=== PATIENT | male | born 1950 | race Caucasian/White ===

== ENCOUNTER 2020-09-26 06:39 | Outpatient (REF) | payer MEDICARE, SELFPAY ==
[2020-09-26 11:36] LABS: Estimated Average Glucose 123 mg/dL; Hemoglobin A1c % 5.9 %
[2020-09-26 12:04] LABS: Alanine Aminotransferase 29 U/L (0-40); Albumin Level 4.1 g/dL (3.5-5.0); Alkaline Phosphatase 105 U/L (39-117); Anion Gap 12 (12-20); Aspartate Amino Transferase 23 U/L (5-37); Blood Urea Nitrogen 24 mg/dL (9-16); Calcium 9.6 mg/dL (8.4-10.2); Carbon Dioxide 28 mmol/L (22-29); Chloride 104 mmol/L (96-108); Estimated Glomerular Filt Rate > 60; Glucose Fasting 113 mg/dL (60-99); Potassium 4.3 mmol/l (3.3-5.1); Sodium 140 mmol/L (135-145); Total Protein 7.5 g/dL (6.5-8.0)
== END 2020-09-26 06:40 | disposition home or self-care (01) ==
LOC: HO.HMGCLDS 06:39
PROVIDERS: PCP Internal Medicine; Visit Provider Internal Medicine
DX: E55.9 Vitamin D deficiency, unspecified (principal); I10 Essential (primary) hypertension; I48.0 Paroxysmal atrial fibrillation; E78.2 Mixed hyperlipidemia; J45.909 Unspecified asthma, uncomplicated; R73.9 Hyperglycemia, unspecified
CPT/HCPCS: 80053; 83036

== ENCOUNTER 2021-01-12 10:13 | Outpatient (REF) | payer MEDICARE, SELFPAY ==
[2021-01-12 11:15] LABS: Glucose Urine UA NEG (NEG); Leukocyte Esterase Urine NEG (NEG); Nitrite Urine NEG (NEG); PH 6.5 (5.0-8.0); Urine Blood TRACE (NEG); Urine Ketones NEG (NEG); Urine Protein NEG (NEG-TRACE)
[2021-01-12 11:16] LABS: Appearance Urine CLEAR; Color Urine YELLOW
[2021-01-12 11:24] LABS: WBC Urine 0-2 /HPF (0-4)
== END 2021-01-12 10:14 | disposition home or self-care (01) ==
LOC: HO.HMGCLDS 10:13
PROVIDERS: PCP Internal Medicine; Visit Provider Internal Medicine
DX: N40.1 Benign prostatic hyperplasia with lower urinary tract symptoms (principal); N13.8 Other obstructive and reflux uropathy
CPT/HCPCS: 81001; 81003

== ENCOUNTER → 2021-02-06 09:58 | Outpatient (BNVA) | payer MEDICARE, SELFPAY | PROVIDERS: PCP Internal Medicine; Visit Provider Urology | DX: N52.9 Male erectile dysfunction, unspecified (principal) | CPT/HCPCS: 51798; 52332; 99202 ==

== ENCOUNTER 2021-03-30 08:23 | Outpatient (REF) | payer MEDICARE, SELFPAY ==
--- NOTE | ~2021-03-30 | US_ITS ---
EXAMINATION: US THYROID CLINICAL INFORMATION: Goiter. History of right thyroid nodule biopsy September 2018/benign. COMPARISON: Ultrasound thyroid soft tissues neck 04/14/2020 and 09/26/2019. TECHNIQUE: Linear transducer grayscale and color Doppler examination with attention to the region of the thyroid. FINDINGS: SIZE: Measurements of the thyroid lobes and nodules are given in sagittal, anteroposterior and transverse dimensions respectively. Right Thyroid Lobe: 5.45 x 2.77 x 1.76 cm, volume 13.9 mL. Previously 5.93 x 3.00 x 1.41 cm, volume 13.1 mL. Parenchyma: The gland echotexture is heterogeneous. Thyroid vascularity is normal. Left Thyroid Lobe: 4.72 x 1.72 x 1.64 cm, volume 6.97 mL. Previously 4.66 x 1.47 x 1.63 cm, volume 5.81 mL. Parenchyma: The gland echotexture is homogeneous. Thyroid vascularity is normal. Isthmus: 0.18 cm in maximum AP dimension. Previously 0.21 cm. Estimated total number of nodules greater than or equal to 1 cm: 1. Chief Medical Technologist nodules are described as follows: 1. Location: Right lower pole. Size: 3.08 x 2.30 x 2.12 cm, volume 7.9 mL. Previously: 3.24 x 2.35 x 1.83 cm, volume 7.3 mL. Nodule characteristics: Composition: Solid/almost completely solid (2). Echogenicity: Hypoechoic (2). Shape: Not taller than wide (0). Margins: Smooth (0). Echogenic Foci: Punctate echogenic foci (3). ACR TI-RADS total points: 7 ACR TI-RADS category: 5 Significant change in size (>/= 20% in 2 dimensions and minimal increase of 2 mm or 50% or greater increase in volume): No Change in features: No Change in ACR TI-RADS risk category: No 2. Location: Right midpole. Size: 0.39 x 0.24 x 0.36 cm, volume 0.02 mL. Previously: 0.40 x 0.20 x 0.30 cm, volume 0.01 mL. Nodule characteristics: Composition: Cystic(0). ACR TI-RADS total points: 0 ACR TI-RADS category: 1 Significant change in size (>/= 20% in 2 dimensions and minimal increase of 2 mm or 50% or greater increase in volume): No Change in features: No Change in ACR TI-RADS risk category: No NODES: No lymphadenopathy is seen in the tissue surrounding the thyroid gland. US/US thyroid IMPRESSION: Enlarged heterogeneous right lobe. Stable right thyroid nodules. ACR TI-RADS RECOMMENDATION REFERENCE: Ultrasound-guided fine-needle aspiration, followup ultrasound, no further follow up. * TR1 (0 point) and TR 2 (2 points): No FNA or follow up * TR3 (3 points): FNA if more than or equal to 2.5 cm in maximum dimension, followup ultrasound in 1, 3 and 5 years if 1.5 to 2.4 cm in maximum dimension. * TR4 (4-6 points): FNA if more than or equal to 1.5 cm in maximum dimension, followup ultrasound in 1, 2, 3 and 5 years if 1 to 1.4 cm in maximum dimension. * TR5 (more than or equal to 7 points): FNA if more than or equal to 1 cm in maximum dimension, followup ultrasound every year for 5 years if 0.5 to 0.9 cm in maximum dimension. * TR3, TR4 or TR5 nodules that are below the size threshold for follow up receive no follow up.
[2021-03-30 11:31] LABS: Hematocrit 41.3 % (42-52); Hemoglobin 13.4 g/dl (14.0-18.0); Mean Corpuscular HGB Conc 32.4 g/dl (31.0-36.0); Mean Corpuscular Hemoglobin 28.9 pg (27.0-33.0); Mean Platelet Volume 10.3 fL (9.4-12.4); Platelet Count 268 X10*3/uL (160-400); Red Blood Count 4.64 X10*6/uL (4.60-5.80); Red Cell Distribution Width 13.4 % (11.0-16.0); White Blood Count 7.2 X10*3/uL (4.8-10.8)
[2021-03-30 11:47] LABS: Glucose Urine UA NEG (NEG); Leukocyte Esterase Urine NEG (NEG); Nitrite Urine NEG (NEG); Specific Gravity - Urine >= 1.030 (1.005-1.025); Urine Blood 1+ (NEG); Urine Ketones NEG (NEG); Urine Protein NEG (NEG-TRACE)
[2021-03-30 11:53] LABS: Alanine Aminotransferase 23 U/L (0-40); Albumin Level 3.8 g/dL (3.5-5.0); Alkaline Phosphatase 118 U/L (39-117); Anion Gap 10 (12-20); Aspartate Amino Transferase 19 U/L (5-37); Bilirubin Total 0.6 mg/dL (0.0-1.0); Blood Urea Nitrogen 23 mg/dL (9-16); Calcium 9.9 mg/dL (8.4-10.2); Carbon Dioxide 28 mmol/L (22-29); Chloride 106 mmol/L (96-108); Cholesterol 131 mg/dL; Estimated Glomerular Filt Rate > 60; Glucose Fasting 102 mg/dL (60-99); HDL Cholesterol 38 mg/dL; LDL Cholesterol Calculated 82 mg/dl; Potassium 4.1 mmol/L (3.3-5.1); Sodium 140 mmol/L (135-145); Total Protein 7.1 g/dL (6.5-8.0); Triglycerides 56 mg/dL
[2021-03-30 11:55] LABS: Appearance Urine CLOUDY; Color Urine YELLOW
[2021-03-30 12:06] LABS: Free T4 (Free Thyroxine) 0.95 ng/dL (0.71-1.85); Thyroid Stimulating Hormone 0.85 uIU/mL (0.32-4.0)
[2021-03-30 12:18] LABS: Prostate Specific Antigen Scr 1.13 ng/mL (<0.05-4.0); TSH reflex Free T4 0.95 uIU/mL (0.32-4.0)
[2021-03-30 12:34] LABS: Estimated Average Glucose 128 mg/dL; Hemoglobin A1c % 6.1 %
[2021-03-30 12:42] LABS: Folate 13.7 ng/mL (> or = 4.0); Vitamin B12 726 pg/mL (200-900)
[2021-03-30 12:50] LABS: Amorphous Sediment Urine 4+ /LPF; RBC Urine 0 /HPF (0); WBC Urine 0 /HPF (0-4)
== END 2021-03-30 08:24 | disposition home or self-care (01) ==
LOC: HO.HMGCX 08:23
PROVIDERS: PCP Internal Medicine; Visit Provider Internal Medicine Endocrinology, Diabetes & Metabolism
DX: E04.2 Nontoxic multinodular goiter (principal); R73.9 Hyperglycemia, unspecified; I10 Essential (primary) hypertension; E78.5 Hyperlipidemia, unspecified; I48.0 Paroxysmal atrial fibrillation; E53.8 Deficiency of other specified B group vitamins; N40.0 Benign prostatic hyperplasia without lower urinary tract symptoms; Z12.5 Encounter for screening for malignant neoplasm of prostate
CPT/HCPCS: 36415; 76536; 80053; 80061; 81001; 82043; 82607; 82746; 83036; 84153; 84439; 84443; 85027

== ENCOUNTER → 2021-04-15 09:48 | Outpatient (BNVA) | payer MEDICARE, SELFPAY | PROVIDERS: PCP Internal Medicine; Visit Provider Internal Medicine Endocrinology, Diabetes & Metabolism | DX: E04.2 Nontoxic multinodular goiter (principal) | CPT/HCPCS: 99212 ==

== ENCOUNTER → 2021-05-12 10:10 | Outpatient (BNVA) | payer MEDICARE, SELFPAY | PROVIDERS: Visit Provider Urology | DX: N40.1 Benign prostatic hyperplasia with lower urinary tract symptoms (principal); N13.8 Other obstructive and reflux uropathy; N52.9 Male erectile dysfunction, unspecified | CPT/HCPCS: 99212 ==

== ENCOUNTER 2021-08-17 07:51 | Outpatient (REF) | payer MEDICARE, SELFPAY ==
[2021-08-17 11:42] LABS: Hematocrit 41.3 % (42-52); Hemoglobin 13.6 g/dl (14.0-18.0); Mean Corpuscular HGB Conc 32.9 g/dl (31.0-36.0); Mean Corpuscular Hemoglobin 29.3 pg (27.0-33.0); Mean Platelet Volume 10.3 fL (9.4-12.4); Platelet Count 273 X10*3/uL (160-400); Red Blood Count 4.64 X10*6/uL (4.60-5.80); Red Cell Distribution Width 13.5 % (11.0-16.0); White Blood Count 9.6 X10*3/uL (4.8-10.8)
[2021-08-17 12:35] LABS: Alanine Aminotransferase 25 U/L (0-40); Albumin Level 3.7 g/dL (3.5-5.0); Alkaline Phosphatase 114 U/L (39-117); Anion Gap 13 (12-20); Aspartate Amino Transferase 19 U/L (5-37); Bilirubin Total 0.6 mg/dL (0.0-1.0); Blood Urea Nitrogen 18 mg/dL (9-16); Calcium 9.5 mg/dL (8.4-10.2); Carbon Dioxide 25 mmol/L (22-29); Chloride 107 mmol/L (96-108); Estimated Glomerular Filt Rate > 60; Glucose Fasting 103 mg/dL (60-99); Iron 65 mcg/dL (45-160); Percent Iron Saturation 26 % (15-50); Sodium 141 mmol/L (135-145); Total Iron Binding Capacity 252 mcg/dL (228-428); Total Protein 6.6 g/dL (6.5-8.0); Unsaturated Iron Binding 187 ug/dL
[2021-08-17 13:03] LABS: Estimated Average Glucose 117 mg/dL; Hemoglobin A1c % 5.7 %
== END 2021-08-17 07:52 | disposition home or self-care (01) ==
LOC: HO.HMGCLDS 07:51
PROVIDERS: PCP Internal Medicine; Visit Provider Internal Medicine
DX: E78.5 Hyperlipidemia, unspecified (principal); I10 Essential (primary) hypertension; R73.9 Hyperglycemia, unspecified
CPT/HCPCS: 36415; 80053; 83036; 83540; 85027

== ENCOUNTER → 2021-11-10 08:47 | Outpatient (BNVA) | payer MEDICARE, SELFPAY | PROVIDERS: PCP Internal Medicine; Visit Provider Urology | DX: N40.1 Benign prostatic hyperplasia with lower urinary tract symptoms (principal); N13.8 Other obstructive and reflux uropathy; N52.9 Male erectile dysfunction, unspecified; N48.6 Induration penis plastica | CPT/HCPCS: 51798; 99212 ==

== ENCOUNTER 2021-12-02 09:19 | Outpatient (REF) | payer MEDICARE, SELFPAY ==
[2021-12-02 12:03] LABS: Uric Acid 5.6 mg/dL (3.4-7.0)
[2021-12-02 12:20] LABS: Erythrocyte Sedimentation Rate 40 MM/HR (0-15)
== END 2021-12-02 09:20 | disposition home or self-care (01) ==
LOC: HO.HMGCLDS 09:19
PROVIDERS: PCP Internal Medicine; Visit Provider Podiatrist
DX: M10.9 Gout, unspecified (principal)
CPT/HCPCS: 36415; 84550; 85652

== ENCOUNTER 2022-03-01 08:11 | Outpatient (REF) | payer MEDICARE, SELFPAY ==
[2022-03-01 12:42] LABS: Alanine Aminotransferase 21 U/L (0-40); Albumin Level 3.8 g/dL (3.5-5.0); Alkaline Phosphatase 104 U/L (39-117); Anion Gap 12 (12-20); Aspartate Amino Transferase 16 U/L (5-37); Bilirubin Total 0.7 mg/dL (0.0-1.0); Blood Urea Nitrogen 19 mg/dL (9-16); Calcium 9.9 mg/dL (8.4-10.2); Carbon Dioxide 26 mmol/L (22-29); Chloride 106 mmol/L (96-108); Cholesterol 131 mg/dL; Estimated Glomerular Filt Rate > 60; Glucose Fasting 107 mg/dL (60-99); HDL Cholesterol 34 mg/dL; LDL Cholesterol Calculated 80 mg/dl; Potassium 3.8 mmol/L (3.3-5.1); Sodium 140 mmol/L (135-145); Total Protein 7.1 g/dL (6.5-8.0); Triglycerides 88 mg/dL
[2022-03-01 12:56] LABS: Estimated Average Glucose 123 mg/dL; Hemoglobin A1c % 5.9 %
== END 2022-03-01 08:12 | disposition home or self-care (01) ==
LOC: HO.HMGCLDS 08:11
PROVIDERS: PCP Internal Medicine; Visit Provider Internal Medicine
DX: E78.5 Hyperlipidemia, unspecified (principal); I10 Essential (primary) hypertension; R73.9 Hyperglycemia, unspecified
CPT/HCPCS: 36415; 80053; 80061; 83036

== ENCOUNTER → 2022-04-06 14:32 | Outpatient (BNVA) | payer MEDICARE, SELFPAY | PROVIDERS: PCP Internal Medicine; Visit Provider Internal Medicine Endocrinology, Diabetes & Metabolism | DX: E04.2 Nontoxic multinodular goiter (principal) | CPT/HCPCS: 99212 ==

== ENCOUNTER 2022-04-07 07:28 | Outpatient (REF) | payer MEDICARE, SELFPAY ==
[2022-04-07 11:48] LABS: Hematocrit 41.1 % (42.0-52.0); Hemoglobin 13.1 g/dl (14.0-18.0); Mean Corpuscular HGB Conc 31.9 g/dl (31.0-36.0); Mean Corpuscular Hemoglobin 28.4 pg (27.0-33.0); Mean Platelet Volume 10.3 fL (9.4-12.4); Platelet Count 259 X10*3/uL (160-400); Red Blood Count 4.62 X10*6/uL (4.60-5.80); Red Cell Distribution Width 13.2 % (11.0-16.0); White Blood Count 8.3 X10*3/uL (4.8-10.8)
[2022-04-07 12:01] LABS: Estimated Average Glucose 120 mg/dL; Hemoglobin A1c % 5.8 %
[2022-04-07 12:13] LABS: Alanine Aminotransferase 23 U/L (0-40); Albumin Level 3.7 g/dL (3.5-5.0); Alkaline Phosphatase 107 U/L (39-117); Anion Gap 14 (12-20); Aspartate Amino Transferase 20 U/L (5-37); Bilirubin Total 0.5 mg/dL (0.0-1.0); Blood Urea Nitrogen 20 mg/dL (9-16); Calcium 9.8 mg/dL (8.4-10.2); Carbon Dioxide 26 mmol/L (22-29); Chloride 105 mmol/L (96-108); Cholesterol 130 mg/dL; Estimated Glomerular Filt Rate > 60; Glucose Fasting 105 mg/dL (60-99); HDL Cholesterol 38 mg/dL; LDL Cholesterol Calculated 81 mg/dl; Potassium 4.5 mmol/L (3.3-5.1); Sodium 140 mmol/L (135-145); Total Protein 6.5 g/dL (6.5-8.0); Triglycerides 55 mg/dL
[2022-04-07 12:14] LABS: Thyroid Stimulating Hormone 1.33 uIU/mL (0.32-4.0)
[2022-04-07 12:15] LABS: Creatinine Urine 130.59 mg/dL; Microalbum/Creatinine Ratio Ur 8.4 ug/mg cr
[2022-04-07 12:22] LABS: Free T4 (Free Thyroxine) 0.99 ng/dL (0.71-1.85)
== END 2022-04-07 07:29 | disposition home or self-care (01) ==
LOC: HO.HMGCLDS 07:28
PROVIDERS: PCP Internal Medicine; Visit Provider Internal Medicine Endocrinology, Diabetes & Metabolism
DX: E04.2 Nontoxic multinodular goiter (principal); I10 Essential (primary) hypertension; R73.9 Hyperglycemia, unspecified; E78.5 Hyperlipidemia, unspecified
CPT/HCPCS: 36415; 80053; 80061; 82043; 83036; 84439; 84443; 85027

== ENCOUNTER → 2022-05-19 08:34 | Outpatient (BNVA) | payer MEDICARE, SELFPAY | PROVIDERS: PCP Internal Medicine; Visit Provider Urology | DX: N40.1 Benign prostatic hyperplasia with lower urinary tract symptoms (principal); N13.8 Other obstructive and reflux uropathy; N48.6 Induration penis plastica; N52.9 Male erectile dysfunction, unspecified | CPT/HCPCS: 51798; 99212 ==

== ENCOUNTER 2022-08-19 08:23 | Outpatient (REF) | payer MEDICARE, SELFPAY ==
[2022-08-19 11:15] LABS: MANUAL DIFF FLAG NO
[2022-08-19 11:25] LABS: Basophils Absolute Auto 0.1 X10*3/uL (0.0-0.2); Basophils Percent Auto 0.8 % (0-2); Eosinophils Absolute Auto 0.5 X10*3/uL (0.0-0.4); Eosinophils Percent Auto 5.6 % (0-4); Hemoglobin 13.4 g/dl (14.0-18.0); Imm Gran Abs Auto 0.04 X10*3/uL (0.00-0.03); Imm Gran Pct Auto 0.4 % (0.0-0.4); Lymphocytes Absolute Auto 2.3 X10*3/uL (1.2-4.9); Lymphocytes Percent Auto 25.6 % (20-40); Mean Corpuscular HGB Conc 32.7 g/dl (31.0-36.0); Mean Corpuscular Hemoglobin 28.5 pg (27.0-33.0); Mean Platelet Volume 10.3 fL (9.4-12.4); Monocytes Absolute Auto 0.8 X10*3/uL (0.1-1.2); Monocytes Percent Auto 9.3 % (2-11); Neutrophils Absolute Auto 5.2 x10*3/uL (2.0-8.3); Neutrophils Percent Auto 58.3 % (45-73); Platelet Count 266 X10*3/uL (160-400); Red Blood Count 4.71 X10*6/uL (4.60-5.80); Red Cell Distribution Width 13.9 % (11.0-16.0); White Blood Count 8.9 X10*3/uL (4.8-10.8)
[2022-08-19 11:29] LABS: Estimated Average Glucose 123 mg/dL; Hemoglobin A1c % 5.9 %
[2022-08-19 11:57] LABS: Alanine Aminotransferase 19 U/L (0-40); Alkaline Phosphatase 111 U/L (39-117); Anion Gap 14 (12-20); Aspartate Amino Transferase 18 U/L (5-37); Bilirubin Total 0.8 mg/dL (0.0-1.0); Blood Urea Nitrogen 22 mg/dL (9-16); Calcium 9.7 mg/dL (8.4-10.2); Carbon Dioxide 24 mmol/L (22-29); Chloride 105 mmol/L (96-108); Cholesterol 133 mg/dL; Estimated Glomerular Filt Rate > 60; Glucose Fasting 103 mg/dL (60-99); HDL Cholesterol 37 mg/dL; LDL Cholesterol Calculated 84 mg/dl; Potassium 4.1 mmol/L (3.3-5.1); Sodium 139 mmol/L (135-145); Total Protein 7.2 g/dL (6.5-8.0); Triglycerides 61 mg/dL; Vitamin D 25-OH Total 49.3 ng/mL (>30)
[2022-08-19 12:21] LABS: Creatinine Urine 164.85 mg/dL; Microalbum/Creatinine Ratio Ur 7.8 ug/mg cr
== END 2022-08-19 08:24 | disposition home or self-care (01) ==
LOC: HO.HMGCLDS 08:23
PROVIDERS: PCP Internal Medicine; Visit Provider Internal Medicine
DX: E78.5 Hyperlipidemia, unspecified (principal); I10 Essential (primary) hypertension; I48.0 Paroxysmal atrial fibrillation; R73.9 Hyperglycemia, unspecified; E55.9 Vitamin D deficiency, unspecified
CPT/HCPCS: 36415; 80053; 80061; 82043; 82306; 83036; 85025

== ENCOUNTER 2022-11-15 08:38 | Outpatient (REF) | payer MEDICARE, SELFPAY ==
[2022-11-15 13:06] LABS: Prostate Specific Antigen 0.53 ng/mL (<0.05-4.0)
== END 2022-11-15 08:39 | disposition home or self-care (01) ==
LOC: HO.HMGCLDS 08:38
PROVIDERS: PCP Internal Medicine; Visit Provider Urology
DX: Z12.5 Encounter for screening for malignant neoplasm of prostate (principal); N40.1 Benign prostatic hyperplasia with lower urinary tract symptoms; N13.8 Other obstructive and reflux uropathy
CPT/HCPCS: 36415; 84153

== ENCOUNTER 2022-11-23 08:26 | Outpatient (REF) | payer MEDICARE, SELFPAY ==
[2022-11-23 17:51] LABS: Urine Cytology See Pathology rpt
== END 2022-11-23 08:27 | disposition home or self-care (01) ==
LOC: HO.LAB 08:26
PROVIDERS: PCP Internal Medicine; Visit Provider Urology
DX: R31.29 Other microscopic hematuria (principal); N48.6 Induration penis plastica; N52.9 Male erectile dysfunction, unspecified; N40.1 Benign prostatic hyperplasia with lower urinary tract symptoms; N13.8 Other obstructive and reflux uropathy
CPT/HCPCS: 51798; 88112; 99212

== ENCOUNTER 2023-02-18 08:07 | Outpatient (REF) | payer MEDICARE, SELFPAY ==
[2023-02-18 11:17] LABS: MANUAL DIFF FLAG NO
[2023-02-18 11:23] LABS: Basophils Absolute Auto 0.1 X10*3/uL (0.0-0.2); Basophils Percent Auto 0.8 % (0-2); Eosinophils Absolute Auto 0.6 X10*3/uL (0.0-0.4); Eosinophils Percent Auto 6.7 % (0-4); Hematocrit 40.5 % (42.0-52.0); Imm Gran Abs Auto 0.03 X10*3/uL (0.00-0.03); Imm Gran Pct Auto 0.3 % (0.0-0.4); Lymphocytes Absolute Auto 2.6 X10*3/uL (1.2-4.9); Lymphocytes Percent Auto 26.6 % (20-40); Mean Corpuscular HGB Conc 32.1 g/dl (31.0-36.0); Mean Corpuscular Volume 87.1 fL (80.0-98.0); Mean Platelet Volume 10.3 fL (9.4-12.4); Monocytes Percent Auto 9.9 % (2-11); Neutrophils Absolute Auto 5.4 x10*3/uL (2.0-8.3); Neutrophils Percent Auto 55.7 % (45-73); Platelet Count 253 X10*3/uL (160-400); Red Blood Count 4.65 X10*6/uL (4.60-5.80); Red Cell Distribution Width 13.5 % (11.0-16.0); White Blood Count 9.6 X10*3/uL (4.8-10.8)
[2023-02-18 11:39] LABS: Estimated Average Glucose 126 mg/dL
[2023-02-18 11:54] LABS: Alanine Aminotransferase 23 U/L (0-40); Albumin Level 3.6 g/dL (3.5-5.0); Alkaline Phosphatase 114 U/L (39-117); Anion Gap 12 (12-20); Aspartate Amino Transferase 18 U/L (5-37); Bilirubin Total 0.7 mg/dL (0.0-1.0); Blood Urea Nitrogen 20 mg/dL (9-16); Calcium 9.4 mg/dL (8.4-10.2); Carbon Dioxide 26 mmol/L (22-29); Chloride 106 mmol/L (96-108); Estimated Glomerular Filt Rate > 60; Glucose Fasting 128 mg/dL (60-99); Potassium 4.2 mmol/L (3.3-5.1); Sodium 140 mmol/L (135-145); Total Protein 6.8 g/dL (6.5-8.0)
[2023-02-18 12:13] LABS: TSH reflex Free T4 0.98 uIU/mL (0.32-4.0)
== END 2023-02-18 08:08 | disposition home or self-care (01) ==
LOC: HO.HMGCLDS 08:07
PROVIDERS: PCP Internal Medicine; Visit Provider Internal Medicine
DX: E53.8 Deficiency of other specified B group vitamins (principal); E55.9 Vitamin D deficiency, unspecified; I10 Essential (primary) hypertension; I48.0 Paroxysmal atrial fibrillation; E78.5 Hyperlipidemia, unspecified
CPT/HCPCS: 36415; 80053; 83036; 84443; 85025

== ENCOUNTER 2023-02-19 11:21 | Outpatient (REF) | payer MEDICARE, SELFPAY ==
[2023-02-19 12:06] LABS: Influenza A PCR NEGATIVE (Negative); Influenza B PCR NEGATIVE (Negative); Resp Syncy Virus RNA Qual PCR NEGATIVE (Negative); SARS COV2 PCR INHOUSE NEGATIVE (Negative)
== END 2023-02-19 11:22 | disposition home or self-care (01) ==
LOC: HO.HMGCLNP 11:21
PROVIDERS: Visit Provider Physician Assistant Medical
DX: Z20.822 Contact with and (suspected) exposure to COVID-19 (principal); R05.9 Cough, unspecified
CPT/HCPCS: 0241U

== ENCOUNTER 2023-04-04 08:32 | Outpatient (REF) | payer MEDICARE, SELFPAY ==
[2023-04-04 12:44] LABS: Alanine Aminotransferase 23 U/L (0-40); Aspartate Amino Transferase 18 U/L (5-37); Cholesterol 128 mg/dL; HDL Cholesterol 38 mg/dL; LDL Cholesterol Calculated 80 mg/dl; Triglycerides 53 mg/dL
== END 2023-04-04 08:33 | disposition home or self-care (01) ==
LOC: HO.HMGCLDS 08:32
PROVIDERS: PCP Internal Medicine; Visit Provider Internal Medicine Cardiovascular Disease
DX: E78.2 Mixed hyperlipidemia (principal)
CPT/HCPCS: 36415; 80061; 84450; 84460

== ENCOUNTER 2023-07-31 13:04 | Emergency (ER) | payer MEDICARE, SELFPAY ==
--- NOTE | 2023-07-31 | ECG_ITS ---
Test Reason : vomiting Blood Pressure : / mmHG Vent. Rate : 050 BPM Atrial Rate : 000 BPM P-R Int : 000 ms QRS Dur : 082 ms QT Int : 422 ms P-R-T Axes : 000 -42 018 degrees QTc Int : 384 ms Atrial fibrillation with slow ventricular response Left axis deviation Inferior infarct , age undetermined Abnormal ECG No previous ECGs available Referred By: Generic ED Physician Electronically Signed By:DESIRAE SHIELDS
--- NOTE | 2023-07-31 13:16 | ED.ABDPAIN ---
HPI - Abdominal Pain General Stated Complaint: Vomiting Related Data Home Medications Medication Instructions Recorded Confirmed atorvastatin 40 mg tablet 40 mg PO DAILY 10/02/20 03/03/23 flu vacc 2020-(65yr ml IM 10/02/20 03/03/23 up)-MF59C(PF) 60 mcg(15 mcgx4)/0.5 mL IM syringe glucosamine HCl 500 mg tablet 500 mg PO DAILY 10/02/20 03/03/23 cholecalciferol (vitamin D3) 50 50 mcg PO DAILY 04/15/21 03/03/23 mcg (2,000 unit) chewable tablet apixaban 5 mg tablet (Eliquis) 5 mg PO BID 11/10/21 03/03/23 diltiazem HCl 180 mg 180 mg PO DAILY 11/10/21 03/03/23 capsule,extended release 24 hr, controlled Previous Rx's Medication Instructions Recorded meclizine 25 mg tablet 25 mg PO TID PRN dizziness #20 tabs 10/09/20 fluticasone 250 mcg-salmeterol 50 1 inh inhalation BID #180 ea 08/27/21 mcg/dose blistr powdr for inhalation (Advair Diskus) vitamin E (dl, acetate) 450 mg 450 mg PO DAILY 90 days #90 caps 11/11/21 (1,000 unit) capsule lisinopril 20 mg tablet 20 mg PO DAILY #90 tabs 10/18/22 sertraline 100 mg tablet 100 mg PO DAILY #90 tabs 10/18/22 albuterol sulfate 90 mcg/actuation 2 puff inhalation Q6H #8.5 grams 11/19/22 aerosol inhaler tadalafil 10 mg tablet 10 mg PO DAILY PRN sexual activity 11/23/22 90 days #90 tabs hydrochlorothiazide 12.5 mg tablet 12.5 mg PO QAM #90 tabs 01/05/23 benzonatate 100 mg capsule 100 mg PO BID-TID PRN cough #30 02/19/23 caps donepezil 10 mg tablet 10 mg PO DAILY #90 tabs 03/03/23 Allergies Allergy/AdvReac Type Severity Reaction Status Date / Time No Known Allergies Allergy Verified 03/03/23 14:21 [facility] Past Medical History Medical History Annual physical exam BPH w urinary obs/LUTS Chronic asthma Chronic depression GERD (gastroesophageal reflux disease) HTN (hypertension) Hyperglycemia Hyperlipidemia Non-toxic multinodular goiter EVITA on CPAP Paroxysmal atrial fibrillation Thyroid nodule Vitamin B12 deficiency Surgical History H/O colonoscopy No pertinent past surgical history Family History Family History Father CHF (congestive heart failure) Diabetes mellitus Mother Cancer Daughter No problems noted. Social History Social History Housing: House Alcohol intake: current Alcohol intake frequency: a few times a week Patient Tobacco Use Status: Never used Tobacco e-Cigarette/Vaping Use: Never Used Second Hand Smoke Exposure: No service: Yes Current occupational status: retired Current occupational exposures/hazards: No Cognitive needs: No Hearing needs: No Vision needs: Yes Course Course Course Narrative: This is a rapid medical exam. Deferred additional HPI, ROS, PE to primary provider. 72 yo male with history of HTN, HLD, COPD, afib on eliquis Discharge Plan Discharge Prescriptions: No Action fluticasone propion-salmeterol [Advair Diskus] 250-50 mcg/dose blister with device 1 inh inhalation BID Qty: 180 3RF sertraline 100 mg tablet 100 mg PO DAILY Qty: 90 3RF lisinopril 20 mg tablet 20 mg PO DAILY Qty: 90 3RF albuterol sulfate 90 mcg/actuation HFA aerosol inhaler 2 puff inhalation Q6H Qty: 8.5 3RF hydrochlorothiazide 12.5 mg tablet 12.5 mg PO QAM Qty: 90 3RF atorvastatin 40 mg tablet 40 mg PO DAILY Fluad Quad 2020-21(65y up)(PF) 60 mcg (15 mcg x 4)/0.5 mL syringe IM glucosamine HCl 500 mg tablet 500 mg PO DAILY Rx Instructions: administer with meals meclizine 25 mg tablet 25 mg PO TID PRN (Reason: dizziness) Qty: 20 0RF benzonatate 100 mg capsule 100 mg PO BID-TID PRN (Reason: cough) Qty: 30 0RF donepezil 10 mg tablet 10 mg PO DAILY Qty: 90 2RF diltiazem HCl 180 mg capsule,ext.rel 24h degradable 180 mg PO DAILY Eliquis 5 mg tablet 5 mg PO BID vitamin E (dl, acetate) 450 mg (1,000 unit) capsule 450 mg PO DAILY 90 Days Qty: 90 1RF cholecalciferol (vitamin D3) 50 mcg (2,000 unit) tablet,chewable 50 mcg PO DAILY tadalafil 10 mg tablet 10 mg PO DAILY PRN (Reason: sexual activity) 90 Days Qty: 90 3RF
[2023-07-31 13:24] VITALS: BP 160/83; PULSE 64; RESP 18; TEMP 36.6; O2SAT 98; BMI 27.8
[2023-07-31 15:45] LABS: MANUAL DIFF FLAG NO
[2023-07-31 15:46] LABS: Basophils Absolute Auto 0.1 X10*3/uL (0.0-0.2); Basophils Percent Auto 0.9 % (0-2); Eosinophils Absolute Auto 0.3 X10*3/uL (0.0-0.4); Eosinophils Percent Auto 3.9 % (0-4); Hematocrit 40.7 % (42.0-52.0); Hemoglobin 13.5 g/dl (14.0-18.0); Imm Gran Abs Auto 0.01 X10*3/uL (0.00-0.03); Imm Gran Pct Auto 0.1 % (0.0-0.4); Lymphocytes Absolute Auto 1.7 X10*3/uL (1.2-4.9); Lymphocytes Percent Auto 22.9 % (20-40); Mean Corpuscular HGB Conc 33.2 g/dl (31.0-36.0); Mean Corpuscular Hemoglobin 28.5 pg (27.0-33.0); Mean Platelet Volume 9.6 fL (9.4-12.4); Monocytes Absolute Auto 0.6 X10*3/uL (0.1-1.2); Monocytes Percent Auto 7.4 % (2-11); Neutrophils Absolute Auto 4.8 x10*3/uL (2.0-8.3); Neutrophils Percent Auto 64.8 % (45-73); Platelet Count 266 X10*3/uL (160-400); Red Blood Count 4.73 X10*6/uL (4.60-5.80); Red Cell Distribution Width 13.2 % (11.0-16.0); White Blood Count 7.4 X10*3/uL (4.8-10.8)
[2023-07-31 15:58] VITALS: BP 142/79; PULSE 56; RESP 18; O2SAT 97
[2023-07-31 16:02] LABS: Alanine Aminotransferase 19 U/L (0-40); Albumin Level 3.9 g/dL (3.5-5.0); Alkaline Phosphatase 107 U/L (39-117); Anion Gap 12 (12-20); Aspartate Amino Transferase 16 U/L (5-37); Bilirubin Total 0.4 mg/dL (0.0-1.0); Blood Urea Nitrogen 11 mg/dL (9-16); Calcium 10.9 mg/dL (8.4-10.2); Carbon Dioxide 28 mmol/L (22-29); Chloride 106 mmol/L (96-108); Creatinine Clr Calc Pharmacy 92.3; Estimated Glomerular Filt Rate > 60; Glucose Random 100 mg/dL (60-115); Potassium 4.3 mmol/L (3.3-5.1); Sodium 142 mmol/L (135-145); Total Protein 7.5 g/dL (6.5-8.0)
--- NOTE | 2023-07-31 16:06 | PC.NURSE ---
pt reported that he got up to use the bathroom and got dizzy and nauseous. did not vomit, symptoms resolved. pt resting back in bed at this time.
--- NOTE | 2023-07-31 16:36 | ED.GENADULT ---
HPI - General Adult General Chief complaint: Nausea/Vomiting/Diarrhea Stated complaint: Vomiting Time Seen by Provider: 07/31/23 15:59 Source: patient Mode of arrival: ambulatory Limitations: no limitations History of Present Illness HPI narrative: Patient is a 72 year old male who presents to the ED due to nausea and vomiting. He reports that his symptoms started yesterday and has experienced episodes of dry heaving. Patient denies seeing any blood in his vomit. He also experiences associated chills and headaches. He reports an increase in bowel movements and noticed that he's been more gassy as of recently. He explains that he's experienced similar symptoms a couple of weeks ago, which lasted about 24 hours and resolved on its own. He has taken tylenol for his headache but denies taking any medication for his GI upset. Patient has a PMH of GERD and denies any abdominal surgeries. Patient and reports the patient has been following with GI, Dr. Norton for 3-4 months of GI upset with diarrhea Related Data Home Medications Medication Instructions Recorded Confirmed atorvastatin 40 mg tablet 40 mg PO DAILY 10/02/20 03/03/23 flu vacc (65yr ml IM 10/02/20 03/03/23 up)-MF59C(PF) 60 mcg(15 mcgx4)/0.5 mL IM syringe glucosamine HCl 500 mg tablet 500 mg PO DAILY 10/02/20 03/03/23 cholecalciferol (vitamin D3) 50 50 mcg PO DAILY 04/15/21 03/03/23 mcg (2,000 unit) chewable tablet apixaban 5 mg tablet (Eliquis) 5 mg PO BID 11/10/21 03/03/23 diltiazem HCl 180 mg 180 mg PO DAILY 11/10/21 03/03/23 capsule,extended release 24 hr, controlled Previous Rx's Medication Instructions Recorded meclizine 25 mg tablet 25 mg PO TID PRN dizziness #20 tabs 10/09/20 fluticasone 250 mcg-salmeterol 50 1 inh inhalation BID #180 ea 08/27/21 mcg/dose blistr powdr for inhalation (Advair Diskus) vitamin E (dl, acetate) 450 mg 450 mg PO DAILY 90 days #90 caps 11/11/21 (1,000 unit) capsule lisinopril 20 mg tablet 20 mg PO DAILY #90 tabs 10/18/22 sertraline 100 mg tablet 100 mg PO DAILY #90 tabs 10/18/22 albuterol sulfate 90 mcg/actuation 2 puff inhalation Q6H #8.5 grams 11/19/22 aerosol inhaler tadalafil 10 mg tablet 10 mg PO DAILY PRN sexual activity 11/23/22 90 days #90 tabs hydrochlorothiazide 12.5 mg tablet 12.5 mg PO QAM #90 tabs 01/05/23 benzonatate 100 mg capsule 100 mg PO BID-TID PRN cough #30 02/19/23 caps donepezil 10 mg tablet 10 mg PO DAILY #90 tabs 03/03/23 ondansetron 4 mg disintegrating 4 mg PO Q8H PRN nausea and 07/31/23 tablet vomiting #20 tabs Allergies Allergy/AdvReac Type Severity Reaction Status Date / Time No Known Allergies Allergy Verified 03/03/23 14:21 Review of Systems Constitutional: Constitutional: Reports chills and Reports headache(s) ENT: Reports headache(s) Cardiovascular: Cardiovascular: Denies chest pain, Reports lightheadedness and Denies dyspnea Respiratory: Respiratory: Denies dyspnea Gastrointestinal: Gastrointestinal: Denies abdominal pain, Reports nausea and Reports vomiting Musculoskeletal: Musculoskeletal: Denies back pain Neurologic: Reports headache(s) [facility] Past Medical History Medical History Annual physical exam BPH w urinary obs/LUTS Chronic asthma Chronic depression GERD (gastroesophageal reflux disease) HTN (hypertension) Hyperglycemia Hyperlipidemia Non-toxic multinodular goiter EVITA on CPAP Paroxysmal atrial fibrillation Thyroid nodule Vitamin B12 deficiency Surgical History H/O colonoscopy No pertinent past surgical history Family History Family History Father CHF (congestive heart failure) Diabetes mellitus Mother Cancer Daughter No problems noted. Social History Social History Housing: House Alcohol intake: never Patient Tobacco Use Status: Never used Tobacco Smoked in Last 30 Days: No e-Cigarette/Vaping Use: Never Used Second Hand Smoke Exposure: No Use of substances other than those prescribed or required for medical reasons: No Advance Directives: Yes Advance Directives Information Provided: No Advance Directives on File: No service: Yes Current occupational status: retired Current occupational exposures/hazards: No Cognitive needs: No Hearing needs: No Vision needs: Yes Physical Exam ED Vital Signs: Vital Signs - 24 hr 07/31/23 13:24 07/31/23 15:58 Temperature 97.8 F Pulse Rate 64 56 Respiratory Rate 18 18 Blood Pressure 160/83 H 142/79 H Pulse Oximetry 98 97 Oxygen Delivery Method Room Air Room Air BMI result Body Mass Index 27.8 Const General: healthy appearing, comfortable, no acute distress, alert and awake Nutritional Appearance: well nourished Orientation/consciousness: patient oriented x3 HENMT Head: Yes normocephalic and Yes atraumatic Eyes Eyelids: Yes eyelids normal Conjunctivae: conjunctivae normal Sclerae: sclerae normal Corneas: corneas normal Pupils: Equal, round and reactive pupils present EOM: EOMs intact bilaterally Neck Neck: Yes full ROM Resp Effort & Inspection: normal respiratory effort, able to speak in complete sentences and not labored GI Inspection: No distended Palpation (GI): Soft to palpation, not firm, nontender, no guarding and not rigid Skin General skin exam: no rashes or lesions noted and elasticity normal Neuro General: patient oriented x3 Cranial nerves: Yes Equal, round and reactive pupils present and Yes Bilaterally intact EOM present Cognition (Neuro): normal cognition Extrem Other: Moving all extremities well without any obvious deformities Medications Administered Discontinued Medications Generic Name Dose Route Start Last Admin Trade Name Freq PRN Reason Stop Dose Admin Ondansetron HCl 4 mg 07/31/23 16:30 07/31/23 16:37 Ondansetron Odt 4 Mg Tab.Deriandis TRANSLINGU 07/31/23 16:31 4 mg ONCE ONE Administration Medical Decision Making Medical Decision Making MDM Narrative: A 72-year-old male presents for evaluation of vomiting. He has no abdominal pain, no tenderness on exam. Patient's hematology shows no leukocytosis, no left shift. Patient's calcium is slightly elevated to 10.9 which is likely related to vomiting but no other electrolyte abnormalities, normal renal function, normal liver function. I did add on a lipase which is normal. We will try to p.o. challenge the patient after receiving ODT Zofran. I discussed CT imaging with the patient as he is had ongoing GI symptoms for last few months is not any imaging. He declined this time which I feel is appropriate as he has no fever, no white count and he is nontender on exam Differential Diagnosis Differential Diagnoses: The differential diagnosis associated with the presentation includes Gastroenteritis Viral syndrome Abdominal pain Peptic ulcer disease Pancreatitis Ileus Colon cancer IBS Lab Data MDM Lab Attestation statement: I reviewed the patient's lab results. No leukocytosis or left shift. Patient has a very mild anemia which is consistent with his baseline dating back to at least 2020. Normal platelet count. Sodium, potassium, chloride within normal limits. Renal function within normal limits. Calcium is slightly above normal at 10.9. Liver function tests within normal limits. 07/31/23 15:38 07/31/23 15:38 Labs: Lab Results 07/31/23 07/31/23 07/31/23 Range/Units 15:38 15:38 16:38 WBC 7.4 (4.8-10.8) X10*3/uL RBC 4.73 (4.60-5.80) X10*6/uL Hgb 13.5 L (14.0-18.0) g/dl Hct 40.7 L (42.0-52.0) % MCV 86.0 (80.0-98.0) fL MCH 28.5 (27.0-33.0) pg MCHC 33.2 (31.0-36.0) g/dl RDW 13.2 (11.0-16.0) % Plt Count 266 (160-400) X10*3/uL MPV 9.6 (9.4-12.4) fL Immature Gran % (Auto) 0.1 (0.0-0.4) % Neut % (Auto) 64.8 (45-73) % Lymph % (Auto) 22.9 (20-40) % [place] % (Auto) 7.4 (2-11) % Eos % (Auto) 3.9 (0-4) % Baso % (Auto) 0.9 (0-2) % Lymph # (Auto) 1.7 (1.2-4.9) X10*3/uL [place] # (Auto) 0.6 (0.1-1.2) X10*3/uL Eos # (Auto) 0.3 (0.0-0.4) X10*3/uL Baso # (Auto) 0.1 (0.0-0.2) X10*3/uL Abs Immat Gran (auto) 0.01 (0.00-0.03) X10*3/uL Absolute Neuts (auto) 4.8 (2.0-8.3) x10*3/uL Absolute Nucleated RBC 0.000 (0.0-0.012) X10*3/uL Nucleated RBC % (auto) 0.0 (0.0-0.2) /100WBC Sodium 142 (135-145) mmol/L Potassium 4.3 (3.3-5.1) mmol/L Chloride 106 (96-108) mmol/L Carbon Dioxide 28 (22-29) mmol/L Anion Gap 12 (12-20) BUN 11 (9-16) mg/dL Creatinine 0.82 (0.5-1.4) mg/dL Estim Creat Clear Calc 92.3 Estimated GFR > 60 Random Glucose 100 (60-115) mg/dL Calcium 10.9 H D (8.4-10.2) mg/dL Total Bilirubin 0.4 (0.0-1.0) mg/dL AST 16 (5-37) U/L ALT 19 (0-40) U/L Alkaline Phosphatase 107 (39-117) U/L Total Protein 7.5 (6.5-8.0) g/dL Albumin 3.9 (3.5-5.0) g/dL Lipase 26 (8-78) U/L Urine Color Yellow Urine Appearance Clear Urine pH 5.5 (5.0-9.0) Ur Specific [place] 1.015 (1.005-1.025) Urine Protein Negative (Neg-Trace) mg/dL Urine Glucose (UA) Negative (Negative) mg/dL Urine Ketones Trace (Negative) mg/dL Urine Blood Trace H (Negative) Urine Nitrite Negative (Negative) Ur Leukocyte Esterase Small (1+) H (Negative) Urine RBC 0-2 (0-2) /HPF Urine WBC 0-5 (0-5) /HPF Ur Squamous Epith Cells 0-2 (0-2) /HPF Urine Bacteria None Seen (None Seen) Hyaline Casts 0-2 (0-2) /LPF Tests considered The following testing was considered but not selected: Consider advanced imaging with CT imaging of the abdomen pelvis with the patient and declined at this time. Discharge Plan Discharge Clinical Impression: Vomiting Patient Disposition: Home, Self-Care Instructions: Acute Nausea and Vomiting (ED) Additional Instructions: Your workup in the emergency department today was reassuring. You should continue to follow with your GI doctor. Take Zofran as needed for nausea and or vomiting. Follow-up with your primary doctor Return for new or worsening symptoms, especially if you develop severe pain or fever Prescriptions: New ondansetron 4 mg tablet,disintegrating 4 mg PO Q8H PRN (Reason: nausea and vomiting) Qty: 20 0RF No Action fluticasone propion-salmeterol [Advair Diskus] 250-50 mcg/dose blister with device 1 inh inhalation BID Qty: 180 3RF sertraline 100 mg tablet 100 mg PO DAILY Qty: 90 3RF lisinopril 20 mg tablet 20 mg PO DAILY Qty: 90 3RF albuterol sulfate 90 mcg/actuation HFA aerosol inhaler 2 puff inhalation Q6H Qty: 8.5 3RF hydrochlorothiazide 12.5 mg tablet 12.5 mg PO QAM Qty: 90 3RF atorvastatin 40 mg tablet 40 mg PO DAILY Fluad Quad 2020-21(65y up)(PF) 60 mcg (15 mcg x 4)/0.5 mL syringe IM glucosamine HCl 500 mg tablet 500 mg PO DAILY Rx Instructions: administer with meals meclizine 25 mg tablet 25 mg PO TID PRN (Reason: dizziness) Qty: 20 0RF benzonatate 100 mg capsule 100 mg PO BID-TID PRN (Reason: cough) Qty: 30 0RF donepezil 10 mg tablet 10 mg PO DAILY Qty: 90 2RF diltiazem HCl 180 mg capsule,ext.rel 24h degradable 180 mg PO DAILY Eliquis 5 mg tablet 5 mg PO BID vitamin E (dl, acetate) 450 mg (1,000 unit) capsule 450 mg PO DAILY 90 Days Qty: 90 1RF cholecalciferol (vitamin D3) 50 mcg (2,000 unit) tablet,chewable 50 mcg PO DAILY tadalafil 10 mg tablet 10 mg PO DAILY PRN (Reason: sexual activity) 90 Days Qty: 90 3RF
[2023-07-31] MEDS: Ondansetron ODT 4 MG TAB.RAPDIS TRANSLINGU (16:37)
[2023-07-31 16:46] LABS: Lipase 26 U/L (8-78)
[2023-07-31 16:47] LABS: Appearance Urine Clear; Color Urine Yellow; Glucose Urine UA Negative (Negative); Leukocyte Esterase Urine Small (1+) (Negative); Nitrite Urine Negative (Negative); PH 5.5 (5.0-9.0); Specific Gravity - Urine 1.015 (1.005-1.025); UMIC TRIGGER UACC YES; Urine Blood Trace (Negative); Urine Ketones Trace mg/dL (Negative); Urine Protein Negative (Neg-Trace)
[2023-07-31 16:54] LABS: Bacteria Urine None Seen (None Seen); Hyaline Casts Urine 0-2 /LPF (0-2); RBC Urine 0-2 /HPF (0-2); Squamous Epithelial Cell Urine 0-2 /HPF (0-2); UACC Culture Trigger YES; WBC Urine 0-5 /HPF (0-5)
--- NOTE | 2023-07-31 17:11 | PC.NURSE ---
pt tolerated PO fluid/crackers. no n/v
== END 2023-07-31 17:16 | disposition home or self-care (01) ==
PROVIDERS: Physician Assistant; Emergency Provider Internal Medicine; PCP Internal Medicine
DX: R11.2 Nausea with vomiting, unspecified (principal); I48.91 Unspecified atrial fibrillation; R06.02 Shortness of breath; Z79.899 Other long term (current) drug therapy
CPT/HCPCS: 36415; 80053; 81001; 83690; 85025; 87086; 93005; 99284

== ENCOUNTER 2023-08-30 08:11 | Outpatient (REF) | payer MEDICARE, SELFPAY ==
[2023-08-30 11:52] LABS: MANUAL DIFF FLAG NO
[2023-08-30 12:05] LABS: Basophils Absolute Auto 0.1 X10*3/uL (0.0-0.2); Basophils Percent Auto 0.7 % (0-2); Eosinophils Absolute Auto 0.6 X10*3/uL (0.0-0.4); Eosinophils Percent Auto 5.9 % (0-4); Hematocrit 39.6 % (42.0-52.0); Hemoglobin 12.9 g/dl (14.0-18.0); Imm Gran Abs Auto 0.04 X10*3/uL (0.00-0.03); Imm Gran Pct Auto 0.4 % (0.0-0.4); Lymphocytes Absolute Auto 2.8 X10*3/uL (1.2-4.9); Mean Corpuscular HGB Conc 32.6 g/dl (31.0-36.0); Mean Corpuscular Hemoglobin 28.7 pg (27.0-33.0); Mean Corpuscular Volume 88.2 fL (80.0-98.0); Mean Platelet Volume 10.5 fL (9.4-12.4); Monocytes Absolute Auto 0.9 X10*3/uL (0.1-1.2); Monocytes Percent Auto 9.1 % (2-11); Neutrophils Absolute Auto 5.6 x10*3/uL (2.0-8.3); Neutrophils Percent Auto 55.9 % (45-73); Platelet Count 303 X10*3/uL (160-400); Red Blood Count 4.49 X10*6/uL (4.60-5.80); Red Cell Distribution Width 13.8 % (11.0-16.0); White Blood Count 10.1 X10*3/uL (4.8-10.8)
[2023-08-30 12:08] LABS: Estimated Average Glucose 114 mg/dL; Hemoglobin A1C 110.6064 umol/L; Hemoglobin A1c % 5.6 % (<6.0)
[2023-08-30 12:31] LABS: Alanine Aminotransferase 26 U/L (0-40); Albumin Level 3.8 g/dL (3.5-5.0); Alkaline Phosphatase 110 U/L (39-117); Anion Gap 11 (12-20); Aspartate Amino Transferase 21 U/L (5-37); Bilirubin Total 0.7 mg/dL (0.0-1.0); Blood Urea Nitrogen 20 mg/dL (9-16); Carbon Dioxide 26 mmol/L (22-29); Chloride 105 mmol/L (96-108); Cholesterol 132 mg/dL (<200); Estimated Glomerular Filt Rate > 60; Glucose Fasting 108 mg/dL (60-99); HDL Cholesterol 39 mg/dL (>40); LDL Cholesterol Calculated 79 mg/dL (<100); Sodium 138 mmol/L (135-145); Total Protein 7.5 g/dL (6.5-8.0); Triglycerides 73 mg/dL (<150)
[2023-08-30 12:50] LABS: Folate 13.8 ng/mL (> or = 4.0); Vitamin B12 573 pg/mL (200-900)
[2023-08-30 12:51] LABS: TSH reflex Free T4 1.05 uIU/mL (0.32-4.0)
== END 2023-08-30 08:12 | disposition home or self-care (01) ==
LOC: HO.HMGCLDS 08:11
PROVIDERS: PCP Internal Medicine; Visit Provider Internal Medicine
DX: E55.9 Vitamin D deficiency, unspecified (principal); R41.3 Other amnesia; E53.8 Deficiency of other specified B group vitamins; I48.0 Paroxysmal atrial fibrillation; E78.5 Hyperlipidemia, unspecified; I10 Essential (primary) hypertension; R73.9 Hyperglycemia, unspecified
CPT/HCPCS: 36415; 80053; 80061; 82306; 82607; 82746; 83036; 84443; 85025

== ENCOUNTER 2023-09-02 08:15 | Outpatient (AMB) | payer MEDICARE, SELFPAY ==
--- NOTE | 2023-09-02 08:28 | MHC.PC.OV ---
Vital Signs 09/02/23 08:29 Height 5 ft 10 in Weight 194 lb BMI 27.8 BP 142/76 H Blood Pressure Location Lt brachial Position Sitting Pulse 90 Pulse Source Pulse Oximeter Pulse Oximetry (%) 97 Oxygen Delivery Method Room Air Intake Visit Reasons: 6 Month follow up Intake Note: Pt is here today for 6 months follow up visit. Allergies No Known Allergies Allergy (Verified 09/02/23 08:30) Medication List - Last Reconciled 09/02/23 by Tamera Mary MD albuterol sulfate 90 mcg/actuation 2 puffs inhalation Q6H apixaban (Eliquis) 5 mg PO BID atorvastatin 40 mg PO DAILY benzonatate 100 mg PO BID-TID PRN cholecalciferol (vitamin D3) 50 mcg PO DAILY diltiazem HCl ER 180 mg PO DAILY donepezil 10 mg PO DAILY flu vac 2020 [id number](PF) 60 mcg (15 mcg x 4)/0.5 mL mL IM fluticasone propion-salmeterol 250-50 mcg/dose (Advair Diskus) 1 inh inhalation BID glucosamine HCl 500 mg PO DAILY hydrochlorothiazide 12.5 mg PO QAM lisinopril 20 mg PO DAILY meclizine 25 mg PO TID PRN ondansetron 4 mg PO Q8H PRN sertraline 100 mg PO DAILY tadalafil 10 mg PO DAILY PRN 90 days vitamin E (dl, acetate) 450 mg PO DAILY 90 days Tobacco use date assessed: 09/02/23 Fall risk assessment: No Falls in past year Last assessed Fall Risk: 09/02/23 Dental Screening Dental Screen Date: 09/02/23 Did you have a dental visit in the last 12 months?: Yes Did you have a dental problem in the last 6 months where you did not have access to dental care?: No Was dental information given to patient?: Patient has dentist HPI 6 Month follow up HPI Details Pt presents for f/u HTN, hyperlipid, COPD, stable on current medications. [facility] Medical History (Updated 09/02/23 @ 09:32 by Tamera Mary MD) Annual physical exam GERD (gastroesophageal reflux disease) Non-toxic multinodular goiter BPH w urinary obs/LUTS Vitamin B12 deficiency Hyperglycemia Thyroid nodule Hyperlipidemia Chronic asthma EVITA on CPAP Chronic depression HTN (hypertension) Paroxysmal atrial fibrillation Surgical History H/O colonoscopy No pertinent past surgical history Family History Father CHF (congestive heart failure) Diabetes mellitus Mother Cancer Daughter No problems noted. Social History Housing: House Alcohol intake: never Patient Tobacco Use Status: Never used Tobacco e-Cigarette/Vaping Use: Never Used Second Hand Smoke Exposure: No service: Yes Current occupational status: retired Current occupational exposures/hazards: No Cognitive needs: No Hearing needs: No Vision needs: Yes Questionnaire Thrive Questionnaire Date Thrive assessed: 03/03/23 JASWINDER-7 AMB Questionnaire JASWINDER-7 Date JASWINDER - 7 assessed: 03/03/23 Source: Developed by Drs. Jason Higgins, Venus Ayon, Damian Camejo and colleagues, with an educational marcell from [employer]. Review of Systems Const All systems reviewed & are unremarkable except as noted in HPI and below Reports no additional complaints Eyes Reports no additional complaints ENT Reports no additional complaints Card Reports no additional complaints Resp Reports no additional complaints GI Reports no additional complaints Reports no additional complaints Physical exam (Primary Care) Vital Signs: Last Vital Signs Pulse 90 09/02/23 08:29 BP 142/76 H 09/02/23 08:29 Pulse Ox 97 09/02/23 08:29 Oxygen Delivery Method Room Air 09/02/23 08:29 BMI result Body Mass Index 27.8 Tobacco/Smoking Status: Tobacco use Status Tobacco use date assessed 09/02/23 09/02/23 08:32 Patient Tobacco Use Status Never used Tobacco 09/02/23 08:32 e-Cigarette/Vaping Use Never Used 09/02/23 08:32 Thrive Assessment: Date of Thrive Assessment Date Thrive assessed 03/03/23 09/02/23 08:32 Const General: no acute distress HENMT Head: Yes normal to inspection Ears: hearing grossly normal bilaterally Eyes General: appearance normal, both eyes and all related structures Neck Neck: Yes no lymphadenopathy and Yes supple Resp Effort & Inspection: normal respiratory effort Auscultation: clear to auscultation bilaterally Cardio Rhythm: regular rhythm Heart sounds: S1 normal heart sound present and S2 normal heart sound present GI Inspection: Yes normal to inspection Palpation (GI): Soft to palpation Assessment and Plan Assessment & Plan (1) Hyperlipidemia: Code(s): E78.5 - Hyperlipidemia, unspecified Plan: Continue statin (2) HTN (hypertension): Comment: BP goal less than 130/80 Code(s): I10 - Essential (primary) hypertension Plan: Continue current medications (3) Hyperglycemia: Code(s): R73.9 - Hyperglycemia, unspecified Plan: Continue ADA diet and monitor A1c (4) Asthma: Code(s): J45.909 - Unspecified asthma, uncomplicated Plan: Continue Advair (5) Memory impairment: Code(s): R41.3 - Other amnesia Plan: Continue donepezil (6) Paroxysmal atrial fibrillation: Comment: f/u with Sales Development Coordinator Dr. Diaz Code(s): I48.0 - Paroxysmal atrial fibrillation Plan: Continue Eliquis and follow-up with Cardiology (7) Vitamin B12 deficiency: Code(s): E53.8 - Deficiency of other specified B group vitamins (8) Non-toxic multinodular goiter: Code(s): E04.2 - Nontoxic multinodular goiter Orders: Orders Comprehensive Byron. Panel Fast 6 Months E04.2 - Nontoxic multinodular goiter, E53.8 - Deficiency of other specified B group vitamins, E78.5 - Hyperlipidemia, unspecified, I10 - Essential (primary) hypertension, I48.0 - Paroxysmal atrial fibrillation, R73.9 - Hyperglycemia, unspecified Lipid Panel 6 Months E04.2 - Nontoxic multinodular goiter, E53.8 - Deficiency of other specified B group vitamins, E78.5 - Hyperlipidemia, unspecified, I10 - Essential (primary) hypertension, I48.0 - Paroxysmal atrial fibrillation, R73.9 - Hyperglycemia, unspecified Hemoglobin A1c 6 Months E04.2 - Nontoxic multinodular goiter, E53.8 - Deficiency of other specified B group vitamins, E78.5 - Hyperlipidemia, unspecified, I10 - Essential (primary) hypertension, I48.0 - Paroxysmal atrial fibrillation, R73.9 - Hyperglycemia, unspecified Complete Blood Count Auto Diff 6 Months E04.2 - Nontoxic multinodular goiter, E53.8 - Deficiency of other specified B group vitamins, E78.5 - Hyperlipidemia, unspecified, I10 - Essential (primary) hypertension, I48.0 - Paroxysmal atrial fibrillation, R73.9 - Hyperglycemia, unspecified TSH reflex Free T4 6 Months E04.2 - Nontoxic multinodular goiter, E53.8 - Deficiency of other specified B group vitamins, E78.5 - Hyperlipidemia, unspecified, I10 - Essential (primary) hypertension, I48.0 - Paroxysmal atrial fibrillation, R73.9 - Hyperglycemia, unspecified IRON PROFILE Today D64.9 - Anemia, unspecified Vitamin B12 and Folate 6 Months E04.2 - Nontoxic multinodular goiter, E53.8 - Deficiency of other specified B group vitamins, E78.5 - Hyperlipidemia, unspecified, I10 - Essential (primary) hypertension, I48.0 - Paroxysmal atrial fibrillation, R73.9 - Hyperglycemia, unspecified Medications: Refilled fluticasone propion-salmeterol 250-50 mcg/dose (Advair Diskus) 1 inh inhalation BID 180 ea 3RF Discontinued ondansetron Discontinued Reason: Doctor's Order 4 mg PO Q8H PRN 20 tabs 0RF nausea and vomiting meclizine Discontinued Reason: Doctor's Order 25 mg PO TID PRN 20 tabs 0RF dizziness benzonatate Discontinued Reason: Doctor's Order 100 mg PO BID-TID PRN 30 caps 0RF cough Coding Level of Care Code Est Pt Level 4 (06501) Diagnoses Hyperlipidemia E78.5 HTN (hypertension) I10 Hyperglycemia R73.9 Asthma J45.909 Memory impairment R41.3 Paroxysmal atrial fibrillation I48.0 Vitamin B12 deficiency E53.8 Non-toxic multinodular goiter E04.2
[2023-09-02 08:29] VITALS: BP 142/76; PULSE 90; O2SAT 97; BMI 27.8
== END 2023-09-02 09:23 | disposition home or self-care (01) ==
PROVIDERS: PCP Internal Medicine; Visit Provider Internal Medicine
DX: E78.5 Hyperlipidemia, unspecified (principal); I10 Essential (primary) hypertension; I48.0 Paroxysmal atrial fibrillation; R73.9 Hyperglycemia, unspecified; J45.909 Unspecified asthma, uncomplicated; R41.3 Other amnesia; E53.8 Deficiency of other specified B group vitamins; E04.2 Nontoxic multinodular goiter
CPT/HCPCS: 99214

== ENCOUNTER 2023-11-23 11:41 | Emergency (ER) | payer MEDICARE, SELFPAY ==
--- NOTE | 2023-11-23 11:59 | ED.WOUNDLAC ---
HPI - Wound/Laceration General Chief Complaint: Wound/Laceration Stated Complaint: Laceration on finger Time Seen by Provider: 11/23/23 12:09 Source: patient, RN notes reviewed and old records reviewed Mode of arrival: ambulatory History of Present Illness HPI narrative: 72-year-old male with a medical history of GERD, anemia, asthma, EVITA, memory impairment, BPH, AFib on Eliquis, HLD, HTN, presenting to the ED complaining of laceration to left index finger s/p slicing potatoes on 11/21/23 with mandolin/slicer. tetanus up-to-date. Denies numbness, tingling, weakness, drainage from area. States presented to ED last night however due to wait time LWT'd Related Data Home Medications Medication Instructions Recorded Confirmed atorvastatin 40 mg tablet 40 mg PO DAILY 10/02/20 09/02/23 flu vacc (65yr ml IM 10/02/20 09/02/23 up)-MF59C(PF) 60 mcg(15 mcgx4)/0.5 mL IM syringe glucosamine HCl 500 mg tablet 500 mg PO DAILY 10/02/20 09/02/23 cholecalciferol (vitamin D3) 50 50 mcg PO DAILY 04/15/21 09/02/23 mcg (2,000 unit) chewable tablet apixaban 5 mg tablet (Eliquis) 5 mg PO BID 11/10/21 09/02/23 diltiazem HCl 180 mg 180 mg PO DAILY 11/10/21 09/02/23 capsule,extended release 24 hr, controlled Previous Rx's Medication Instructions Recorded vitamin E (dl, acetate) 450 mg 450 mg PO DAILY 90 days #90 caps 11/11/21 (1,000 unit) capsule tadalafil 10 mg tablet 10 mg PO DAILY PRN sexual activity 11/23/22 90 days #90 tabs hydrochlorothiazide 12.5 mg tablet 12.5 mg PO QAM #90 tabs 01/05/23 albuterol sulfate 90 mcg/actuation 2 puff inhalation Q6H #8.5 grams 08/26/23 aerosol inhaler donepezil 10 mg tablet 10 mg PO DAILY #90 tabs 08/31/23 Advair Diskus 250 mcg-50 mcg/dose 1 inh inhalation BID #180 ea 09/05/23 powder for inhalation (fluticasone propion-salmeterol) lisinopril 20 mg tablet 20 mg PO DAILY #90 tabs 11/18/23 sertraline 100 mg tablet 100 mg PO DAILY #90 tabs 11/18/23 Allergies Allergy/AdvReac Type Severity Reaction Status Date / Time No Known Allergies Allergy Verified 09/02/23 08:30 Review of Systems Review of Systems: Constitutional: No Fever, No Chills ENT/Mouth: No Ear Pain, No Nasal Congestion, No sore throat, No Rhinorrhea, No Swallowing Difficulty Cardiovascular: No Chest Pain, No SOB Respiratory: No Cough Gastrointestinal: No Nausea, No Vomiting, No Abdominal pain Musculoskeletal: No joint pain, No Myalgias, No Joint Swelling Skin: + Skin Lesions, No rash Neuro: No Weakness, No Numbness, No Paresthesias Yes all other systems are reviewed and are negative Constitutional: Constitutional: Reports as per [facility] Past Medical History Attestation statement: The following information was validated with the patient. Source: old records reviewed Medical History Annual physical exam GERD (gastroesophageal reflux disease) Non-toxic multinodular goiter BPH w urinary obs/LUTS Vitamin B12 deficiency Hyperglycemia Thyroid nodule Hyperlipidemia Chronic asthma EVITA on CPAP Chronic depression HTN (hypertension) Paroxysmal atrial fibrillation Surgical History H/O colonoscopy No pertinent past surgical history Family History Family History Father CHF (congestive heart failure) Diabetes mellitus Mother Cancer Daughter No problems noted. Social History Social History Housing: House Alcohol intake: never Patient Tobacco Use Status: Never used Tobacco e-Cigarette/Vaping Use: Never Used Second Hand Smoke Exposure: No Advance Directives: Yes Advance Directives Information Provided: No Advance Directives on File: No service: Yes Current occupational status: retired Current occupational exposures/hazards: No Cognitive needs: No Hearing needs: No Vision needs: Yes Physical Exam Vital Signs: Vital Signs: Last Vital Signs Temp 97.8 F 11/23/23 12:00 Pulse 73 11/23/23 12:00 Resp 18 11/23/23 12:00 BP 145/97 H 11/23/23 12:00 Pulse Ox 99 11/23/23 12:00 O2 Del Method Room Air 11/23/23 12:00 BMI result Body Mass Index 28.2 Const: General: cooperative, healthy appearing and no acute distress Orientation/consciousness: patient oriented x3 Limitations: no limitations HEENT: Head: Yes normal to inspection and Yes atraumatic Ears: hearing grossly normal bilaterally General nose exam: Normal external nose present Face and sinus: Yes normal facial exam Eyes: General: appearance normal, both eyes and all related structures EOM: EOMs intact bilaterally Neck: Neck: Yes normal visual inspection and Yes no meningeal signs Resp: Effort & Inspection: normal respiratory effort and no respiratory distress Cardio: Rate: regular rate Skin: Other: +skin avulsion to distal left index finger. bleeding controlled. underlying structures appear intact. Full range of motion. NV intact Rashes: no rashes Neuro: General: patient oriented x3, tone normal and no meningeal signs Cranial nerves: Yes CN's II-XII intact bilaterally Gait exam (Neuro): Normal gait present Extrem: General: Yes normal to inspection Medical Decision Making Medical Decision Making MDM Narrative: 72-year-old male with a medical history of GERD, anemia, asthma, EVITA, memory impairment, BPH, AFib on Eliquis, HLD, HTN, presenting to the ED complaining of laceration to left index finger s/p slicing potatoes on 11/21/23 with mandolin/slicer. On exam vital signs stable, NAD, nontoxic, noted skin avulsion as above, no active bleeding. No evidence of infection/ cellulitis or tendon/ligamental injury Dermabond applied for protective layer. Please refer to course for remaining clinical decision making, interpretation of labs/imaging results, and discussions with consultants and/or family members. Results discussed with patient including worrisome signs and symptoms and strict return precautions, and when to return to the emergency department. They verbalized understanding and feel safe for discharge at this time. Differential Diagnosis Differential Diagnoses: The differential diagnosis associated with the presentation includes As above Independent Historian Clinical information obtained from an independent historian. History obtained from or confirmed by: Spouse External Record Review External record reviewed: Inpatient record, Office record, Outpatient record, Prior outpatient labs, Prior outpatient radiology, Primary care record and Outside ED record Tests considered The following testing was considered but not selected: As above Prescription Management I considered prescription management with: Pain Medication and Antibiotic Discharge Plan Discharge Clinical Impression: Skin avulsion Patient Disposition: Home, Self-Care Instructions: Finger Laceration (ED) Additional Instructions: Your wounds were repaired today in the emergency department. Keep dry and clean. skin glue will fall off on its own, DO NOT PICK AT IT you can get wet, but minimal and pat dry Apply bacitracin and or Neosporin daily If area begins look infected, is red, there is drainage, streaking, or you have fever please return to the emergency department Prescriptions: No Action hydrochlorothiazide 12.5 mg tablet 12.5 mg PO QAM Qty: 90 3RF albuterol sulfate 90 mcg/actuation HFA aerosol inhaler 2 puff inhalation Q6H Qty: 8.5 3RF donepezil 10 mg tablet 10 mg PO DAILY Qty: 90 1RF fluticasone propion-salmeterol [Advair Diskus] 250-50 mcg/dose blister with device 1 inh inhalation BID Qty: 180 3RF lisinopril 20 mg tablet 20 mg PO DAILY Qty: 90 3RF sertraline 100 mg tablet 100 mg PO DAILY Qty: 90 3RF atorvastatin 40 mg tablet 40 mg PO DAILY Fluad Quad 2020-21(65y up)(PF) 60 mcg (15 mcg x 4)/0.5 mL syringe IM glucosamine HCl 500 mg tablet 500 mg PO DAILY Rx Instructions: administer with meals diltiazem HCl 180 mg capsule,ext.rel 24h degradable 180 mg PO DAILY Eliquis 5 mg tablet 5 mg PO BID vitamin E (dl, acetate) 450 mg (1,000 unit) capsule 450 mg PO DAILY 90 Days Qty: 90 1RF cholecalciferol (vitamin D3) 50 mcg (2,000 unit) tablet,chewable 50 mcg PO DAILY tadalafil 10 mg tablet 10 mg PO DAILY PRN (Reason: sexual activity) 90 Days Qty: 90 3RF Referrals: Tamera Mary MD [Primary Care Provider] - 1 week
[2023-11-23 12:00] VITALS: BP 145/97; PULSE 73; RESP 18; TEMP 36.6; O2SAT 99; BMI 28.2
== END 2023-11-23 12:18 | disposition home or self-care (01) ==
PROVIDERS: Emergency Provider Emergency Medicine Emergency Medical Services; PCP Internal Medicine
DX: S61.201A Unspecified open wound of left index finger without damage to nail, initial encounter (principal); I10 Essential (primary) hypertension; I48.91 Unspecified atrial fibrillation; Z79.01 Long term (current) use of anticoagulants; W45.8XXA Other foreign body or object entering through skin, initial encounter; W27.4XXA Contact with kitchen utensil, initial encounter; Y93.9 Activity, unspecified; Y92.9 Unspecified place or not applicable; Y99.9 Unspecified external cause status
CPT/HCPCS: 12001; 99282

== ENCOUNTER 2024-01-31 10:03 | Outpatient (AMB) | payer MEDICARE, SELFPAY ==
--- NOTE | 2024-01-31 10:19 | MHC.OFFVIS ---
Intake Intake Visit Reasons: 1Y PVR(Confirmed) Intake Note: Patient is Present for Follow Up PVR Urology Medication: Tadalafil Antibiotic Allergies: None Blood Thinners: Eliquis Confirmed Pharmacy: [facility] PVR: 15 Allergies No Known Allergies Allergy (Verified 01/31/24 10:23) Medication List - Last Reconciled 01/31/24 by Buddy Rosenthal MD Advair Diskus 250-50 mcg/dose (fluticasone propion-salmeterol) 1 inh inhalation BID NS albuterol sulfate 90 mcg/actuation 2 puffs inhalation Q6H apixaban (Eliquis) 5 mg PO BID atorvastatin 40 mg PO DAILY cholecalciferol (vitamin D3) 50 mcg PO DAILY diltiazem HCl ER 120 mg PO DAILY donepezil 10 mg PO DAILY flu vac 2020 [id number](PF) 60 mcg (15 mcg x 4)/0.5 mL mL IM hydrochlorothiazide 12.5 mg PO QAM lisinopril 20 mg PO DAILY melatonin 10 mg PO BEDTIME PRN sertraline 100 mg PO DAILY tadalafil 10 mg PO DAILY PRN 90 days vitamin E (dl, acetate) 450 mg PO DAILY 90 days HPI HPI Comments History of Present Illness Details Anival is a pleasant male. He is a patient of Dr. Bhandari. He is seen for the following urologic conditions - erectile dysfunction activity - lower urinary tract symptoms - Peyronie's disease Continue good response with tadalafil medication Happy with current bladder emptying and erections Refill provided 12 month follow-up Has minor curve in penis but overall stable Erectile dysfunction Previous use of Levitra 20 mg Progressive PSA 04/17 0.8, 11/18 0.53 Good response to daily tadalafil 10 mg Lower urinary tract symptoms Good response to tamsulosin Effective response with tadalafil as sole agent Peyronie's disease Diagnosed 2020 Completed 6 months of antioxidants Stabilized with tadalafil PFSH Medical History Annual physical exam GERD (gastroesophageal reflux disease) Non-toxic multinodular goiter BPH w urinary obs/LUTS Vitamin B12 deficiency Hyperglycemia Thyroid nodule Hyperlipidemia Chronic asthma EVITA on CPAP Chronic depression HTN (hypertension) Paroxysmal atrial fibrillation Surgical History H/O colonoscopy No pertinent past surgical history Family History Father CHF (congestive heart failure) Diabetes mellitus Mother Cancer Daughter No problems noted. Social History Housing: House Alcohol intake: never Patient Tobacco Use Status: Never used Tobacco e-Cigarette/Vaping Use: Never Used Second Hand Smoke Exposure: No service: Yes Current occupational status: retired Current occupational exposures/hazards: No Cognitive needs: No Hearing needs: No Vision needs: Yes Review of Systems Const Denies chills and Denies fever(s) Card Reports no additional complaints and Denies syncope Resp Denies cough GI Denies abdominal pain and Denies heartburn Reports as per HPI and Denies change in libido Neuro Denies syncope Psych Denies change in libido Endo Denies change in libido Physical Exam Const General: cooperative, healthy appearing, comfortable and no acute distress Orientation/consciousness: patient oriented x3 HEENT Face and sinus: Yes normal facial exam Mouth: moist mucous membranes Neck Neck: Yes normal visual inspection, Yes full ROM and Yes trachea midline Chest Chest palpation & inspection: normal inspection of the chest Resp Effort & Inspection: normal respiratory effort, able to speak in complete sentences and no respiratory distress GI Inspection: Yes normal to inspection Back/Spine/Pelvis Cervical Spine: normal cervical lordosis Thoracic/Lumbar Spine: thoracic and lumbar spine normal to inspection Skin General skin exam: no rashes or lesions noted Neuro General: patient oriented x3, gait normal, tone normal and moves all extremities Extrem General: Yes normal to inspection and Yes capillary refill normal Office Procedures Post Void Residual Post Residual Void Post Void Residual (PVR): 15 65042-Bgna Void Residual by ultrasound Assessment & Plan Assessment & Plan (1) Peyronie's disease: Code(s): N48.6 - Induration penis plastica (2) Erectile dysfunction: Code(s): N52.9 - Male erectile dysfunction, unspecified (3) BPH w urinary obs/LUTS: Code(s): N40.1 - Benign prostatic hyperplasia with lower urinary tract symptoms; N13.8 - Other obstructive and reflux uropathy Plan Twelve month follow-up Orders: Orders AMB Post Void Residual by ultrasound Today N13.8 - Other obstructive and reflux uropathy, N40.1 - Benign prostatic hyperplasia with lower urinary tract symptoms Medications: Refilled tadalafil 10 mg PO DAILY PRN 90 tabs 3RF sexual activity 90 days N48.6 - Induration penis plastica Patient Instructions: Imaging studies, laboratory and physical exam results were discussed and reviewed in detail. No major barriers to patient understanding were identified. An opportunity to ask questions regarding the treatment plan was provided. All questions were answered. The patient expressed understanding and agreement with the above treatment plan. The patient is aware they should contact our office by phone for worsening of their current condition or the appearance of new urologic symptoms. Compliance is encouraged with any medications and followup testing that is ordered. It is a privilege to participate in the urologic care of your patient. If you have any questions or concerns regarding treatment for the above conditions, or other urologic issues, please do not hesitate to contact me. The office telephone contact is [phone]. This note is constructed using voice recognition software. While every effort has been made to ensure accuracy laser machine operator errors may have been included. Yours sincerely, Dr Buddy Rosenthal MD, [facility] - Urology Providers of Expert, Compassionate Care for the Genitourinary System Coding Level of Care Code Est Pt Level 4 (47482) Diagnoses Peyronie's disease N48.6 Erectile dysfunction N52.9 BPH w urinary obs/LUTS N40.1; N13.8 CPT Codes Post Residual Void - PVR CPT Code: 17577-Uvao Void Residual by ultrasound ([id number])
== END 2024-01-31 10:38 | disposition home or self-care (01) ==
PROVIDERS: Visit Provider Urology
DX: N40.1 Benign prostatic hyperplasia with lower urinary tract symptoms (principal); N48.6 Induration penis plastica; N52.9 Male erectile dysfunction, unspecified; N13.8 Other obstructive and reflux uropathy
CPT/HCPCS: 99213

== ENCOUNTER → 2024-01-31 10:03 | Outpatient (BNVA) | payer MEDICARE, SELFPAY | PROVIDERS: Visit Provider Urology | DX: N40.1 Benign prostatic hyperplasia with lower urinary tract symptoms (principal); N13.8 Other obstructive and reflux uropathy; N52.9 Male erectile dysfunction, unspecified; N48.6 Induration penis plastica | CPT/HCPCS: 51798; 99212 ==

== ENCOUNTER 2024-03-02 07:09 | Outpatient (REF) | payer MEDICARE, SELFPAY ==
[2024-03-02 10:25] LABS: MANUAL DIFF FLAG NO
[2024-03-02 10:46] LABS: Basophils Absolute Auto 0.1 X10*3/uL (0.0-0.2); Basophils Percent Auto 0.9 % (0-2); Eosinophils Absolute Auto 0.7 X10*3/uL (0.0-0.4); Eosinophils Percent Auto 9.5 % (0-4); Hematocrit 42.1 % (42.0-52.0); Hemoglobin 13.8 g/dl (14.0-18.0); Imm Gran Abs Auto 0.02 X10*3/uL (0.00-0.03); Imm Gran Pct Auto 0.3 % (0.0-0.4); Lymphocytes Absolute Auto 2.4 X10*3/uL (1.2-4.9); Lymphocytes Percent Auto 34.1 % (20-40); Mean Corpuscular HGB Conc 32.8 g/dl (31.0-36.0); Mean Corpuscular Volume 88.4 fL (80.0-98.0); Mean Platelet Volume 10.3 fL (9.4-12.4); Monocytes Absolute Auto 0.7 X10*3/uL (0.1-1.2); Monocytes Percent Auto 9.4 % (2-11); Neutrophils Absolute Auto 3.2 x10*3/uL (2.0-8.3); Neutrophils Percent Auto 45.8 % (45-73); Platelet Count 260 X10*3/uL (160-400); Red Blood Count 4.76 X10*6/uL (4.60-5.80); Red Cell Distribution Width 13.4 % (11.0-16.0); White Blood Count 6.9 X10*3/uL (4.8-10.8)
[2024-03-02 10:56] LABS: Estimated Average Glucose 120 mg/dL; Hemoglobin A1c % 5.8 % (<6.0)
[2024-03-02 11:26] LABS: Alanine Aminotransferase 27 U/L (0-40); Albumin Level 3.8 g/dL (3.5-5.0); Alkaline Phosphatase 106 U/L (39-117); Anion Gap 11 (12-20); Aspartate Amino Transferase 23 U/L (5-37); Bilirubin Total 0.6 mg/dL (0.0-1.0); Blood Urea Nitrogen 18 mg/dL (9-16); Calcium 9.9 mg/dL (8.4-10.2); Carbon Dioxide 28 mmol/L (22-29); Chloride 106 mmol/L (96-108); Cholesterol 131 mg/dL (<200); Estimated Glomerular Filt Rate > 60; Glucose Fasting 106 mg/dL (60-99); HDL Cholesterol 39 mg/dL (>40); LDL Cholesterol Calculated 80 mg/dL (<100); Potassium 3.8 mmol/L (3.3-5.1); Sodium 141 mmol/L (135-145); TSH reflex Free T4 1.06 uIU/mL (0.32-4.0); Total Protein 7.6 g/dL (6.5-8.0); Triglycerides 61 mg/dL (<150)
[2024-03-02 11:40] LABS: Folate 12.1 ng/mL (> or = 4.0); Vitamin B12 804 pg/mL (200-900)
== END 2024-03-02 07:10 | disposition home or self-care (01) ==
LOC: HO.HMGCLDS 07:09
PROVIDERS: PCP Internal Medicine; Visit Provider Internal Medicine
DX: I10 Essential (primary) hypertension (principal); I48.0 Paroxysmal atrial fibrillation; E04.2 Nontoxic multinodular goiter; R73.9 Hyperglycemia, unspecified; E78.5 Hyperlipidemia, unspecified; E53.8 Deficiency of other specified B group vitamins
CPT/HCPCS: 36415; 80053; 80061; 82607; 82746; 83036; 84443; 85025

== ENCOUNTER 2024-03-06 08:52 | Outpatient (AMB) | payer MEDICARE, SELFPAY ==
[2024-03-06 08:57] VITALS: BP 120/76; PULSE 64; O2SAT 100; BMI 28.4
--- NOTE | 2024-03-06 09:00 | AM.OFFVISMDC ---
Intake Vital Signs 03/06/24 08:57 Height 5 ft 10 in Weight 198 lb BMI 28.4 BP 120/76 Blood Pressure Location Lt brachial Position Sitting Pulse 64 Pulse Source Pulse Oximeter Pulse Oximetry (%) 100 Oxygen Delivery Method Room Air Intake Visit Reasons: SWV [id number] Allergies No Known Allergies Allergy (Verified 03/06/24 09:00) Medication List - Last Reconciled 03/06/24 by Tamera Mary MD Advair Diskus 250-50 mcg/dose (fluticasone propion-salmeterol) 1 inh inhalation BID NS albuterol sulfate 90 mcg/actuation 2 puffs inhalation Q6H apixaban (Eliquis) 5 mg PO BID atorvastatin 40 mg PO DAILY cholecalciferol (vitamin D3) 50 mcg PO DAILY diltiazem HCl ER 120 mg PO DAILY donepezil 10 mg PO DAILY flu vac 2020 [id number](PF) 60 mcg (15 mcg x 4)/0.5 mL mL IM hydrochlorothiazide 12.5 mg PO QAM lisinopril 20 mg PO DAILY melatonin 10 mg PO BEDTIME PRN sertraline 100 mg PO DAILY tadalafil 10 mg PO DAILY PRN 90 days HPI SWV G0439 HPI Details Initiated the conversation about Advanced Directives. Advanced Directives help? patients prepare for current and future decisions about their medical treatment? and place of care. Discussed with patient that it is a process where a patients? current condition and prognosis are reviewed, their wishes for information? regarding their illness are elicited, and likely medical dilemmas are presented? and options discussed. The form can be amended as needed, reviewed yearly and? make changes as needed IPPE/AWV ? year old presents? for her ? Annual? Wellness Visit, initial visit.? Medical / Social History Reviewed? Past Medical History ?Yes? . ? [place]? of Care / Care Team list updated ?Yes . ? Surgical/Hospitalization? History ?Yes . ? Current Medications? (including OTC and supplements) ?Yes . ? Family History ?Yes? . ? Tobacco? Control form ?Yes . ? AUDIT-C (Alcohol use) form? ?Yes . ? Illicit drug use in Social? History ?Yes . ? Current diagnosis of? depression? ?No ? Appropriate PHQ2/PHQ9? completed ?Yes . ? Data entered by ?Medical? Hydrator Operator and reviewed by provider ? Fall Risk ? Fall? History? Have you had any falls with? injury in the past year? ?No . ? Have you had two or more? falls in the past year? ?No . ? Fall Risk Assessment: ?No? falls in the past year . ? HRA filled out by? the patient, reviewed by Provider and scanned. ? IPPE/AWV ? Balance? [place]? ?Yes . ? Tandem? walk ?Yes . ? Walk and? Turn ?Yes . ? Rise from? sit to stand ?Yes . ?Vision? Corrective? lens ?Yes ? Vision? screen ? Up-to-date, has an appointment [] for vision? screening and glaucoma screening ?Hearing? Whisper? test ?pass .? Initiated the conversation about Advanced Directives. Advanced Directives help? patients prepare for current and future decisions about their medical treatment? and place of care. Discussed with patient that it is a process where a patients? current condition and prognosis are reviewed, their wishes for information? regarding their illness are elicited, and likely medical dilemmas are presented? and options discussed. The form can be amended as needed, reviewed yearly and? make changes as needed Written? Plan?Completed. See Patient? Documents. [facility] Medical History (Updated 03/06/24 @ 10:05 by Tamera Mary MD) Annual physical exam GERD (gastroesophageal reflux disease) Non-toxic multinodular goiter BPH w urinary obs/LUTS Vitamin B12 deficiency Hyperglycemia Thyroid nodule Hyperlipidemia Chronic asthma EVITA on CPAP Chronic depression HTN (hypertension) Paroxysmal atrial fibrillation Surgical History (Updated 03/06/24 @ 09:33 by Tamera Mary MD) H/O colonoscopy No pertinent past surgical history Family History Father CHF (congestive heart failure) Diabetes mellitus Mother Cancer Daughter No problems noted. Social History Housing: House Alcohol intake: never Patient Tobacco Use Status: Never used Tobacco e-Cigarette/Vaping Use: Never Used Second Hand Smoke Exposure: No service: Yes Current occupational status: retired Current occupational exposures/hazards: No Cognitive needs: No Hearing needs: No Vision needs: Yes Questionnaire Medicare Wellness Checkup [age] What gender do you identify with?: male During the past 4 weeks, how much have you been bothered by emotional problems such as feeling anxious, depressed, irritable, sad or downhearted, and blue?: slightly During the past 4 weeks, has your physical & emotional health limited your social activities with family, friends, neighbors, or groups?: slightly During the past 4 weeks, how much bodily pain have you generally had?: mild pain During the past 4 weeks, was someone available to help you if you needed & wanted help?: yes, a little During the past 4 weeks, what was the hardest physical activity you could do for at least 2 minutes?: moderate Can you get to places out of walking distance without help? (For eg., can you travel alone on buses, taxis or drive your car?): No Can you go shopping for groceries or clothes without someone's help?: Yes Can you prepare your own meals?: Yes Can you do your housework without help?: Yes Because of any health problems, do you need the help of another person with your personal care needs such as eating, bathing, dressing or getting around the house?: Yes Can you handle your own money without help?: Yes During the past 4 weeks, how would you rate your health in general?: good During the past 4 weeks how have things been going for you?: good & bad parts about equal Are you having difficulties driving your car?: sometimes Do you always fasten your seat belt when you are in a car?: yes, usually During past 4 weeks, have you been bothered by the following: never: Trouble eating well? and Teeth or denture problems?, seldom: Problems using the telephone? and sometimes: Falling or dizzy when standing up, Sexual problems? and Tiredness or fatigue? Have you fallen 2 or more times in the past year?: Yes Are you afraid of falling?: No Are you a smoker?: no During the past 4 weeks, how many drinks of wine, beer, or other alcoholic beverages did you have?: 1 drink or less per week Do you exercise for about 20 minutes 3 or more times a week?: yes, some of the time Have you been given information to help with the following?: yes: Keeping track of your medications? and no: Hazards in your house that might hurt you? How often do you have trouble taking medicines the way you have been told to take them?: I always take medicine as prescribed How confident are you that you can control & manage most of your health problems?: somewhat confident What is your race?: White Mini Mental State Exam (MMSE) Orientation What is the (year) (season) (date) (day) (month)?: year, season, date, day and month Where are we (state) (county) (town or city) (hospital) (floor)?: state, county, town or city, hospital/clinic and floor Registration Name of 3 unrelated objects clearly and slowly, then ask patient to repeat all 3 of them. (1st repeat determines score. Make sure they can repeat all three): object 1, object 2 and object 3 Attention & Calculation (CHOOSE ONE) Spell WORLD backwards (DLROW): 5 letters Recall Ask patient to repeat the 3 items from question #3.: object 1, object 2 and object 3 Language Show patient a wristwatch & ask what it is. Repeat for pencil.: watch and pencil Ask the patient to repeat the phrase 'No ifs, ands, or buts' after you.: correct Ask the patient to 'take a piece of paper with their right hand' 'fold paper in half' 'place paper on floor': take paper in right hand, fold paper in half and place paper on floor Print the sentence 'CLOSE YOUR EYES' on a piece. If patient actually closes eyes then score.: followed written direction Score Score: 28 PHQ-9 Over the last 2 weeks, how often have you been bothered by any of the following problems? 1. Little interest or pleasure in doing things: more than half the days 2. Feeling down, depressed, or hopeless: several days 3. Trouble falling or staying asleep, or sleeping too much: nearly every day 4. Feeling tired or having little energy: more than half the days 5. Poor appetite or overeating: not at all 6. Feeling bad about yourself - or that you are a failure or have let yourself or your family down: several days 7. Trouble concentrating on things, such as reading the newspaper or watching television: several days 8. Moving or speaking so slowly that other people could have noticed. Or the opposite - being so fidgety or restless that you have been moving around a lot more than usual: more than half the days 9. Thoughts that you would be better off or of hurting yourself in some way: not at all Total score: 12 Depression Screening Interpretation: Positive Depression Screening Done: Yes Source: Developed by Drs. Jason Higgins, Venus Ayon, Damian Camejo and colleagues, with an educational marcell from [employer]. Review of Systems Const All systems reviewed & are unremarkable except as noted in HPI and below Reports no additional complaints Eyes Reports no additional complaints ENT Reports no additional complaints Card Reports no additional complaints Resp Reports no additional complaints GI Reports no additional complaints Reports no additional complaints Physical Exam Vital Signs: Last Vital Signs Pulse 64 03/06/24 08:57 BP 120/76 03/06/24 08:57 Pulse Ox 100 03/06/24 08:57 Oxygen Delivery Method Room Air 03/06/24 08:57 BMI result Body Mass Index 28.4 Const General: no acute distress HEENT Head: Yes normal to inspection Ears: hearing grossly normal bilaterally Face and sinus: Yes normal facial exam Mouth: Normal oral and palatal mucosa present Throat: Yes posterior oropharynx normal Neck Neck: Yes no lymphadenopathy and Yes supple Resp Effort & Inspection: normal respiratory effort Auscultation: clear to auscultation bilaterally Cardio Rhythm: regular rhythm Heart sounds: S1 normal heart sound present and S2 normal heart sound present Extrem General: Yes no clubbing, cyanosis or edema Assessment & Plan Assessment & Plan (1) H/O colonoscopy: Comment: 03/14 negative, 12/20 2 polyps, Dr. Gonsalez. recheck in 5 yrs Code(s): Z98.890 - Other specified postprocedural states Plan: f/u with GI (2) Annual physical exam: Code(s): Z00.00 - Encounter for general adult medical examination without abnormal findings Plan: well balanced diet, regular exercise, discussed (3) Paroxysmal atrial fibrillation: Comment: f/u with [employer] Dr. Diaz Code(s): I48.0 - Paroxysmal atrial fibrillation Plan: cont meds. (4) Hyperlipidemia: Code(s): E78.5 - Hyperlipidemia, unspecified Plan: cont statin (5) HTN (hypertension): Comment: BP goal less than 130/80 Code(s): I10 - Essential (primary) hypertension Plan: CONTINUE CURRENT MEDICATIONS (6) Hyperglycemia: Code(s): R73.9 - Hyperglycemia, unspecified Plan: A1C 5.8, cont ADA diet, regular exercise, return in 6 months with a fasting labs before (7) Vitamin B12 deficiency: Code(s): E53.8 - Deficiency of other specified B group vitamins Plan: CONTINUE VITAMIN B 12 (8) Vitamin D deficiency: Code(s): E55.9 - Vitamin D deficiency, unspecified Plan: CONTINUE VITAMIN-D. Orders: Orders Lipid Panel 6 Months E53.8 - Deficiency of other specified B group vitamins, E55.9 - Vitamin D deficiency, unspecified, E78.5 - Hyperlipidemia, unspecified, I10 - Essential (primary) hypertension, I48.0 - Paroxysmal atrial fibrillation, R73.9 - Hyperglycemia, unspecified, Z00.00 - Encounter for general adult medical examination without abnormal findings Microalbumin, Random (w Creat) 6 Months E53.8 - Deficiency of other specified B group vitamins, E55.9 - Vitamin D deficiency, unspecified, E78.5 - Hyperlipidemia, unspecified, I10 - Essential (primary) hypertension, I48.0 - Paroxysmal atrial fibrillation, R73.9 - Hyperglycemia, unspecified, Z00.00 - Encounter for general adult medical examination without abnormal findings Comprehensive [place]. Panel Fast 6 Months E53.8 - Deficiency of other specified B group vitamins, E55.9 - Vitamin D deficiency, unspecified, E78.5 - Hyperlipidemia, unspecified, I10 - Essential (primary) hypertension, I48.0 - Paroxysmal atrial fibrillation, R73.9 - Hyperglycemia, unspecified, Z00.00 - Encounter for general adult medical examination without abnormal findings Complete Blood Count Auto Diff 6 Months E53.8 - Deficiency of other specified B group vitamins, E55.9 - Vitamin D deficiency, unspecified, E78.5 - Hyperlipidemia, unspecified, I10 - Essential (primary) hypertension, I48.0 - Paroxysmal atrial fibrillation, R73.9 - Hyperglycemia, unspecified, Z00.00 - Encounter for general adult medical examination without abnormal findings Hemoglobin A1c 6 Months E53.8 - Deficiency of other specified B group vitamins, E55.9 - Vitamin D deficiency, unspecified, E78.5 - Hyperlipidemia, unspecified, I10 - Essential (primary) hypertension, I48.0 - Paroxysmal atrial fibrillation, R73.9 - Hyperglycemia, unspecified, Z00.00 - Encounter for general adult medical examination without abnormal findings TSH reflex Free T4 6 Months E53.8 - Deficiency of other specified B group vitamins, E55.9 - Vitamin D deficiency, unspecified, E78.5 - Hyperlipidemia, unspecified, I10 - Essential (primary) hypertension, I48.0 - Paroxysmal atrial fibrillation, R73.9 - Hyperglycemia, unspecified, Z00.00 - Encounter for general adult medical examination without abnormal findings Vitamin D 25-OH Total 6 Months E53.8 - Deficiency of other specified B group vitamins, E55.9 - Vitamin D deficiency, unspecified, E78.5 - Hyperlipidemia, unspecified, I10 - Essential (primary) hypertension, I48.0 - Paroxysmal atrial fibrillation, R73.9 - Hyperglycemia, unspecified, Z00.00 - Encounter for general adult medical examination without abnormal findings Vitamin B12 6 Months E53.8 - Deficiency of other specified B group vitamins Quality Reporting (2019) Depression/Bipolar (159/160/161/177) PHQ-9: Total score: 12 Coding Level of Care Code Medicare Subsequent (G0439) Diagnoses H/O colonoscopy Z98.890 Annual physical exam Z00.00 Paroxysmal atrial fibrillation I48.0 Hyperlipidemia E78.5 HTN (hypertension) I10 Hyperglycemia R73.9 Vitamin B12 deficiency E53.8 Vitamin D deficiency E55.9 CPT Codes Advance Care Planning - Advance Care Planning discussion: On file, no changes ([id number]) Advance Care Planning - Time spent: 1-15 minutes, on File ([id number]) Advance Care Planning Advance Care Planning discussion: On file, no changes Forms completed: Health Care Proxy Time spent: 1-15 minutes, on File
== END 2024-03-06 10:03 | disposition home or self-care (01) ==
PROVIDERS: PCP Internal Medicine; Visit Provider Internal Medicine
DX: Z98.890 Other specified postprocedural states (principal); Z00.00 Encounter for general adult medical examination without abnormal findings; I48.0 Paroxysmal atrial fibrillation; E78.5 Hyperlipidemia, unspecified; I10 Essential (primary) hypertension; R73.9 Hyperglycemia, unspecified; E53.8 Deficiency of other specified B group vitamins; E55.9 Vitamin D deficiency, unspecified
CPT/HCPCS: 1123F; G0439

== ENCOUNTER 2024-04-02 07:49 | Outpatient (REF) | payer MEDICARE, SELFPAY ==
[2024-04-02 10:56] LABS: Cholesterol 128 mg/dL (<200); HDL Cholesterol 39 mg/dL (>40); LDL Cholesterol Calculated 76 mg/dL (<100); Triglycerides 67 mg/dL (<150)
== END 2024-04-02 07:50 | disposition home or self-care (01) ==
LOC: HO.HMGCLDS 07:49
PROVIDERS: PCP Internal Medicine; Visit Provider Internal Medicine Cardiovascular Disease
DX: I48.21 Permanent atrial fibrillation (principal); E78.2 Mixed hyperlipidemia
CPT/HCPCS: 36415; 80061

== ENCOUNTER 2024-07-18 10:07 | Outpatient (AMB) | payer MEDICARE, SELFPAY ==
--- NOTE | 2024-07-18 10:08 | MHC.OFFWIV ---
Intake Vital Signs 07/18/24 10:09 Height 5 ft 10 in Weight 198 lb BMI 28.4 BP 120/72 Blood Pressure Location Rt brachial Position Sitting Pulse 54 Pulse Source Pulse Oximeter Temp 98.4 F Temp Source Oral Pulse Oximetry (%) 98 Oxygen Delivery Method Room Air Intake Visit Reasons: EP chills Intake Note: pt c/o chills. Ongoing. Unknown duration Patient Tobacco Use Status: Never used Tobacco Allergies No Known Allergies Allergy (Verified 07/18/24 10:10) Do you need a note to return to daycare/school/sports/work: No HPI EP chills HPI Details This note is constructed using voice recognition software. While every effort has been made to ensure accuracy, casino operations supervisor errors may have been included. The patient is a 73 year old male poor historian who presents to the clinic today with c/o chills intermittently for several months, cough intermittently with shortness of breath for several months. He also reports that he has some early dementia and has some difficulties with remembering things. He does not feel that he has had any symptoms that are daily, or symptoms that getting worse, however does note that his is currently sick, and he is unsure what she is sick with. He does report an extensive smoking history, ending 30 years ago. He denies any secretions, however does report that when he coughs he moves secretions, but he does not see them as the swallows them. Also patient reports difficulty sleeping, , which he reported as he was leaving the exam room. He notes that he does not know how long this has been going on for and he has not tried anything to resolve it. [facility] Medical History (Updated 03/06/24 @ 10:05 by Tamera Mary MD) Annual physical exam GERD (gastroesophageal reflux disease) Non-toxic multinodular goiter BPH w urinary obs/LUTS Vitamin B12 deficiency Hyperglycemia Thyroid nodule Hyperlipidemia Chronic asthma EVITA on CPAP Chronic depression HTN (hypertension) Paroxysmal atrial fibrillation Surgical History (Updated 03/06/24 @ 09:33 by Tamera Mary MD) H/O colonoscopy No pertinent past surgical history Family History Father CHF (congestive heart failure) Diabetes mellitus Mother Cancer Daughter No problems noted. Social History Housing: House Alcohol intake: never Patient Tobacco Use Status: Never used Tobacco e-Cigarette/Vaping Use: Never Used Second Hand Smoke Exposure: No service: Yes Current occupational status: retired Current occupational exposures/hazards: No Cognitive needs: No Hearing needs: No Vision needs: Yes Review of Systems Const All systems reviewed & are unremarkable except as noted in HPI and below Physical Exam Vital Signs: Last Vital Signs Temp 98.4 F 07/18/24 10:09 Pulse 54 07/18/24 10:09 BP 120/72 07/18/24 10:09 Pulse Ox 98 07/18/24 10:09 Oxygen Delivery Method Room Air 07/18/24 10:09 BMI result Body Mass Index 28.4 Const General: cooperative, healthy appearing, comfortable and no acute distress Orientation/consciousness: patient oriented x3 Limitations: no limitations HEENT Head: Yes normal to inspection Ears: hearing grossly normal bilaterally, external ears normal and TM's normal bilaterally General nose exam: Normal external nose present, Normal nares present and No nasal discharge present Face and sinus: Yes normal facial exam and Yes sinuses nontender Mouth: Normal oral and palatal mucosa present and moist mucous membranes Throat: Yes posterior oropharynx normal, Yes tonsils normal, Yes uvula midline and Yes postnasal drainage Eyes General: appearance normal, both eyes and all related structures Neck Neck: Yes normal visual inspection Resp Effort & Inspection: normal respiratory effort, able to speak in complete sentences, Actively coughing, no respiratory distress, not tachypneic, no tripod positioning and no use of accessory muscles Auscultation: clear to auscultation bilaterally Cardio Jugular venous distension: no JVD Rate: regular rate Rhythm: regular rhythm Heart sounds: S1 normal heart sound present, S2 normal heart sound present, no click, no gallops, no murmurs and no rubs Skin General skin exam: no rashes or lesions noted, elasticity normal and turgor normal Neuro General: patient oriented x3 Extrem General: Yes normal to inspection and Yes no clubbing, cyanosis or edema Assessment & Plan Assessment & Plan (1) URI (upper respiratory infection): Code(s): J06.9 - Acute upper respiratory infection, unspecified Qualifiers: URI type: unspecified URI Qualified Code(s): J06.9 - Acute upper respiratory infection, unspecified Plan: Reassuring in office exam, however given that patient is a poor historian, we did elect to swab for both a viral panel as well as to obtain a chest x-ray as it is possible that he has been having symptoms significantly longer than he is able to recall. Advised patient to treat symptoms with [id number] methodology, and reviewed with patient. Advised follow up with PCP. Chest x-ray reviewed, no obvious signs of pneumonia or infection, official radiology read pending. Plan See above for full details and plan. Advised trial benadryl for reports insomnia, advised patient to follow up with primary care provider for this, should symptoms persist. Orders: Orders SARS-CoV2/FLU/RSV Today J06.9 - Acute upper respiratory infection, unspecified XR chest 2V Today J06.9 - Acute upper respiratory infection, unspecified Coding Level of Care Code Est Pt Level 4 (16789) Diagnoses Upper respiratory tract infection, unspecified type J06.9 URI type: unspecified URI
[2024-07-18 10:09] VITALS: BP 120/72; PULSE 54; TEMP 36.9; O2SAT 98; BMI 28.4
== END 2024-07-18 10:58 | disposition home or self-care (01) ==
PROVIDERS: PCP Internal Medicine; Visit Provider Registered Nurse
DX: J06.9 Acute upper respiratory infection, unspecified (principal)
CPT/HCPCS: 99214

== ENCOUNTER 2024-07-18 10:29 | Outpatient (REF) | payer MEDICARE, SELFPAY ==
[2024-07-18 14:09] LABS: Influenza A PCR NEGATIVE (Negative); Influenza B PCR NEGATIVE (Negative); Resp Syncy Virus RNA Qual PCR NEGATIVE (Negative); SARS COV2 PCR INHOUSE NEGATIVE (Negative)
== END 2024-07-18 10:30 | disposition home or self-care (01) ==
LOC: HO.LNP 10:29
PROVIDERS: Visit Provider Registered Nurse
DX: J06.9 Acute upper respiratory infection, unspecified (principal)
CPT/HCPCS: 0241U

== ENCOUNTER 2024-07-18 10:37 | Outpatient (REF) | payer MEDICARE, SELFPAY ==
--- NOTE | ~2024-07-18 | XR_ITS ---
EXAMINATION: XR CHEST CLINICAL INFORMATION: Acute respiratory infection COMPARISON: None available. TECHNIQUE: 2 views of the chest were obtained. FINDINGS: Lungs hyperinflated but clear. No infiltrates or pleural effusions. Heart and pulmonary vessels are normal. There are spondylitic changes in the thoracic spine. XR/XR chest 2V IMPRESSION: No active disease. Electronically signed by: Cristhian Issa MD 07/18/2024 04:02 PM EDT
== END 2024-07-18 10:38 | disposition home or self-care (01) ==
LOC: HO.HMGCX 10:37
PROVIDERS: PCP Internal Medicine; Visit Provider Registered Nurse
DX: J06.9 Acute upper respiratory infection, unspecified (principal)
CPT/HCPCS: 71046

== ENCOUNTER 2024-07-23 15:39 | Emergency (ER) | payer MEDICARE, SELFPAY ==
--- NOTE | ~2024-07-23 | XR_ITS ---
EXAMINATION: XR CHEST CLINICAL INFORMATION: Thumping in chest COMPARISON: None available. TECHNIQUE: 2 views of the chest were obtained. FINDINGS: Clear lungs. No effusion or pneumothorax. Coronary mediastinal silhouette is within normal limits. XR/XR chest 2V IMPRESSION: Clear lungs. Electronically signed by: Chio Soares MD 07/23/2024 07:01 PM EDT
--- NOTE | ~2024-07-23 | CT_ITS ---
EXAMINATION: CT CHEST WITHOUT CONTRAST CLINICAL INFORMATION: Shortness of breath with question of pneumonia COMPARISON: Chest radiograph from 07/23/24 TECHNIQUE: Multidetector volumetric CT imaging of the chest was done. Axial MIP volume rendering provided. Sagittal and coronal reformatted images were obtained. This CT examination was performed using dose optimization techniques as appropriate, variously including the following: *Automated exposure control *Adjustment of mA and/or kV according to patient size (this includes techniques or standardized protocols for targeted exams where dose is matched to indication/reason for exam; i.e. extremities or head) *Use of iterative reconstruction technique DLP: 265 mGy-cm FINDINGS: INSTRUCTOR PRODUCT INSPECTION: Unremarkable LUNGS: The lungs are clear with no evidence of inflammation or nodules. MEDIASTINUM: The mediastinum is unremarkable. There is some small mediastinal lymph nodes but no adenopathy. CORONARY ARTERY CALCIFICATION: Moderater PLEURA: There is no pleural effusion. No pleural mass or thickening. AXILLA: No lymphadenopathy. UPPER ABDOMEN: The visualized liver is heterogeneous and there is a question of a hypoattenuating masses in the liver (see epperson images) OSSEOUS STRUCTURES: Unremarkable. CT/CT chest wo IV con IMPRESSION: 1. No evidence of pneumonia. 2. The liver is heterogeneous and there is a question of a hypoattenuating masses in the liver. Further evaluation is recommended with CT scan of the abdomen and pelvis with and without contrast. Alternatively, liver ultrasound would be useful. Fleischner guidelines were followed. Electronically signed by: Pepito Vann MD 07/23/2024 11:54 PM EDT
--- NOTE | 2024-07-23 15:40 | ECG_ITS ---
Test Reason : CHEST PAIN Blood Pressure : / mmHG Vent. Rate : 070 BPM Atrial Rate : 000 BPM P-R Int : 000 ms QRS Dur : 088 ms QT Int : 380 ms P-R-T Axes : 000 -23 011 degrees QTc Int : 410 ms Atrial fibrillation Low voltage QRS Abnormal ECG When compared with ECG of 31-JUL-2023 14:51, Nonspecific T wave abnormality, worse in Inferior leads Referred By: Carolyn Ritchie Electronically Signed By:DESIRAE SHIELDS
--- NOTE | 2024-07-23 15:54 | ED.GENADULT ---
HPI - General Adult General Chief complaint: Chest Pain Stated complaint: chest pain,chills Time Seen by Provider: 07/23/24 21:07 Source: patient Mode of arrival: ambulatory Limitations: no limitations History of Present Illness HPI narrative: Patient is a 73-year-old male who presents to the emergency department with his for evaluation. Patient states that he has been experiencing a nonproductive cough, intermittent chills and shortness of breath for several months. He presented to the walk-in clinic with [facility] a few days ago and states he had a chest x-ray done that was negative. States he had a COVID test that was negative as well. His has been ill with similar symptoms. He denies any known fevers. He was a smoker when he was younger but quit approximately 30 years ago. Today he states he experienced pain to his left anterior chest that felt like single stabbing sensation and lasted a 2nd for self resolving. He states that he told his about feeling this way and she felt strongly about coming to the emergency department for evaluation. He has had no further episodes of chest pain. Denies any associated dizziness, lightheadedness, lower extremity redness pain or swelling. Related Data Home Medications ?Medication ?Instructions ?Recorded ?Confirmed atorvastatin 40 mg tablet 40 mg PO DAILY 10/02/20 03/06/24 cholecalciferol (vitamin D3) 50 50 mcg PO DAILY 04/15/21 03/06/24 mcg (2,000 unit) chewable tablet apixaban 5 mg tablet (Eliquis) 5 mg PO BID 11/10/21 03/06/24 melatonin 10 mg capsule 10 mg PO BEDTIME PRN 01/31/24 03/06/24 albuterol sulfate 90 mcg/actuation 2 puff inhalation Q6H PRN 07/18/24 aerosol inhaler diltiazem HCl 120 mg 120 mg PO DAILY 07/18/24 capsule,extended release 24 hr Previous Rx's ?Medication ?Instructions ?Recorded Advair Diskus 250 mcg-50 mcg/dose 1 inh inhalation BID #180 ea 01/06/24 powder for inhalation (fluticasone propion-salmeterol) tadalafil 10 mg tablet 10 mg PO DAILY PRN sexual activity 01/31/24 90 days #90 tabs hydrochlorothiazide 12.5 mg tablet 12.5 mg PO QAM #90 tabs 03/30/24 lisinopril 20 mg tablet 20 mg PO DAILY #90 tabs 03/30/24 sertraline 100 mg tablet 100 mg PO DAILY #90 tabs 03/30/24 donepezil 10 mg tablet 10 mg PO DAILY #90 tabs 06/13/24 Allergies Allergy/AdvReac Type Severity Reaction Status Date / Time No Known Allergies Allergy Verified 07/23/24 15:57 FORMERLY [facility], [facility] Past Medical History Medical History (Updated 07/24/24 @ 00:24 by Phyllis Farah CNP) Annual physical exam GERD (gastroesophageal reflux disease) Non-toxic multinodular goiter BPH w urinary obs/LUTS Vitamin B12 deficiency Hyperglycemia Thyroid nodule Hyperlipidemia Chronic asthma EVITA on CPAP Chronic depression HTN (hypertension) Paroxysmal atrial fibrillation Surgical History (Updated 03/06/24 @ 09:33 by Tamera Mary MD) H/O colonoscopy No pertinent past surgical history Family History Family History Father CHF (congestive heart failure) Diabetes mellitus Mother Cancer Daughter No problems noted. Social History Social History Housing: House Alcohol intake: never Patient Tobacco Use Status: Never used Tobacco Smoked in Last 30 Days: No e-Cigarette/Vaping Use: Never Used Second Hand Smoke Exposure: No Use of substances other than those prescribed or required for medical reasons: No Advance Directives: No Advance Directives Information Provided: No Do you have a plan to hurt others: No Plan service: Yes Current occupational status: retired Current occupational exposures/hazards: No Cognitive needs: No Hearing needs: No Vision needs: Yes Physical Exam ED Vital Signs: Vital Signs - 24 hr 07/23/24 15:55 07/23/24 21:13 07/23/24 23:17 Temperature 98.3 F 98.4 F 98.5 F Pulse Rate 75 88 98 Respiratory Rate 18 15 18 Blood Pressure 139/65 138/84 111/75 Pulse Oximetry 99 98 97 Oxygen Delivery Method Room Air Room Air Room Air 07/24/24 00:33 Temperature 98.5 F Pulse Rate 98 Respiratory Rate 18 Blood Pressure 111/75 Pulse Oximetry 97 Oxygen Delivery Method Room Air BMI result Body Mass Index 28.4 Course Course Course Narrative: RME performed by Carolyn Ritchie PA-C. Patient is a 73 year old assigned male at presenting to the emergency department with chest pain. Patient states that he has been having chest pain. Detailed physical exam and review of systems are deferred to the software project engineer. EKG, labs, imaging, and swabs ordered. Patient placed back in the waiting room pending room availability and results. Reevaluation(s) Reevaluation #1: No pneumonia on CT, incidental abnormal findings of the liver, LFTs within normal range, these findings were discussed with patient recommended outpatient follow-up with primary care provider for further evaluation. Patient verbalized understanding. They are comfortable plan of care for discharge home and strict return precautions. Medical Decision Making Medical Decision Making [facility] Narrative: Patient is a 73-year-old male with past medical history of GERD, BPH, vitamin B12 deficiency, thyroid nodule, hyperlipidemia, chronic asthma, EVITA on CPAP, depression, hypertension, paroxysmal atrial fibrillation on Eliquis. CBC is without leukocytosis, has a normocytic anemia that does not meet transfusion criteria, no thrombocytopenia. No electrolyte derangement. No JONAS. BNP not consistent with CHF, high sensitive troponin within normal range x2, EKG without ischemic changes; atrial fibrillation ventricular rate is 70, QTC 410, pain unlikely ACS. CXR without evidence of acute pathology. Given his duration of symptoms, age, chief complaint will obtain CT of the chest to exclude underlying pneumonia. Suspect less likely to have pulmonary embolism as he is anticoagulated on Eliquis, without hypoxia nor tachycardia. Overall is well-appearing and does not appear in respiratory distress. Differential Diagnosis Differential Diagnoses: The differential diagnosis associated with the presentation includes (See narrative above) Admission/Observation Consideration of admission/observation: Escalation of care including admission/observation considered Lab Data [facility] Lab Attestation statement: I reviewed the patient's lab results. (See narrative above) 07/23/24 16:08 07/23/24 16:08 Labs: Lab Results 07/23/24 07/23/24 07/23/24 Range/Units 16:07 16:08 18:44 WBC 9.6 (4.8-10.8) X10*3/uL RBC 4.03 L (4.60-5.80) X10*6/uL Hgb 11.7 L (14.0-18.0) g/dl Hct 35.0 L (42.0-52.0) % MCV 86.8 (80.0-98.0) fL MCH 29.0 (27.0-33.0) pg MCHC 33.4 (31.0-36.0) g/dl RDW 12.5 (11.0-16.0) % Plt Count 289 (160-400) X10*3/uL MPV 9.1 L (9.4-12.4) fL Immature Gran % (Auto) 0.3 (0.0-0.4) % Neut % (Auto) 60.8 (45-73) % Lymph % (Auto) 21.7 (20-40) % [place] % (Auto) 13.6 H (2-11) % Eos % (Auto) 3.0 (0-4) % Baso % (Auto) 0.6 (0-2) % Lymph # (Auto) 2.1 (1.2-4.9) X10*3/uL [place] # (Auto) 1.3 H (0.1-1.2) X10*3/uL Eos # (Auto) 0.3 (0.0-0.4) X10*3/uL Baso # (Auto) 0.1 (0.0-0.2) X10*3/uL Abs Immat Gran (auto) 0.03 (0.00-0.03) X10*3/uL Absolute Neuts (auto) 5.8 (2.0-8.3) x10*3/uL Absolute Nucleated RBC 0.000 (0.0-0.012) X10*3/uL Nucleated RBC % (auto) 0.0 (0.0-0.2) /100WBC PT 18.6 H (11.1-13.3) SEC INR 1.5 H (0.9-1.1) APTT 40.2 H (26.0-36.8) SEC Sodium 140 (135-145) mmol/L Potassium 4.1 (3.3-5.1) mmol/L Chloride 107 (96-108) mmol/L Carbon Dioxide 24 (22-29) mmol/L Anion Gap 13 (12-20) BUN 17 H (9-16) mg/dL Creatinine 0.78 (0.5-1.4) mg/dL Estim Creat Clear Calc 96.4 Estimated GFR > 60 Random Glucose 93 (60-115) mg/dL Calcium 10.1 (8.4-10.2) mg/dL Magnesium 1.9 (1.6-2.6) mg/dL Total Bilirubin 0.5 (0.0-1.0) mg/dL AST 32 (5-37) U/L ALT 36 (0-40) U/L Alkaline Phosphatase 195 H (39-117) U/L Troponin I High Sens 5.5 6.6 (<3.5-35.0) ng/L B-Natriuretic Peptide (<100) pg/mL Total Protein 7.9 (6.5-8.0) g/dL Albumin 3.7 (3.5-5.0) g/dL Influenza Type A (PCR) NEGATIVE (Negative) Influenza Type B (PCR) NEGATIVE (Negative) RSV RNA Qual (PCR) NEGATIVE (Negative) SARS-CoV-2 RNA (RT-PCR) NEGATIVE (Negative) 07/23/24 Range/Units 22:42 WBC (4.8-10.8) X10*3/uL RBC (4.60-5.80) X10*6/uL Hgb (14.0-18.0) g/dl Hct (42.0-52.0) % MCV (80.0-98.0) fL MCH (27.0-33.0) pg MCHC (31.0-36.0) g/dl RDW (11.0-16.0) % Plt Count (160-400) X10*3/uL MPV (9.4-12.4) fL Immature Gran % (Auto) (0.0-0.4) % Neut % (Auto) (45-73) % Lymph % (Auto) (20-40) % [place] % (Auto) (2-11) % Eos % (Auto) (0-4) % Baso % (Auto) (0-2) % Lymph # (Auto) (1.2-4.9) X10*3/uL [place] # (Auto) (0.1-1.2) X10*3/uL Eos # (Auto) (0.0-0.4) X10*3/uL Baso # (Auto) (0.0-0.2) X10*3/uL Abs Immat Gran (auto) (0.00-0.03) X10*3/uL Absolute Neuts (auto) (2.0-8.3) x10*3/uL Absolute Nucleated RBC (0.0-0.012) X10*3/uL Nucleated RBC % (auto) (0.0-0.2) /100WBC PT (11.1-13.3) SEC INR (0.9-1.1) APTT (26.0-36.8) SEC Sodium (135-145) mmol/L Potassium (3.3-5.1) mmol/L Chloride (96-108) mmol/L Carbon Dioxide (22-29) mmol/L Anion Gap (12-20) BUN (9-16) mg/dL Creatinine (0.5-1.4) mg/dL Estim Creat Clear Calc Estimated GFR Random Glucose (60-115) mg/dL Calcium (8.4-10.2) mg/dL Magnesium (1.6-2.6) mg/dL Total Bilirubin (0.0-1.0) mg/dL AST (5-37) U/L ALT (0-40) U/L Alkaline Phosphatase (39-117) U/L Troponin I High Sens (<3.5-35.0) ng/L B-Natriuretic Peptide 127 H (<100) pg/mL Total Protein (6.5-8.0) g/dL Albumin (3.5-5.0) g/dL Influenza Type A (PCR) (Negative) Influenza Type B (PCR) (Negative) RSV RNA Qual (PCR) (Negative) SARS-CoV-2 RNA (RT-PCR) (Negative) Independent Interpretation I performed an independent interpretation of an: EKG (See narrative above) and Plain X-Ray (No consolidation or infiltrate) Radiology Impression Discussion of test interpretation with radiology: I have reviewed the radiologist's reading. Radiologist Impression: XR/XR chest 2V IMPRESSION: Clear lungs. CT/CT chest wo IV con IMPRESSION: 1. No evidence of pneumonia. 2. The liver is heterogeneous and there is a question of a hypoattenuating masses in the liver. Further evaluation is recommended with CT scan of the abdomen and pelvis with and without contrast. Alternatively, liver ultrasound would be useful. Independent Historian Clinical information obtained from an independent historian. History obtained from or confirmed by: Spouse External Record Review External record reviewed: Outpatient record Discharge Plan Discharge Clinical Impression: Chest pain, Abnormal liver diagnostic imaging Patient Disposition: Home, Self-Care Instructions: Chest Pain (DC) Additional Instructions: As discussed, your workup today is overall very reassuring, there is no evidence of a heart attack, your blood counts were normal. I do not see evidence of pneumonia. There was an incidental finding of changes to your liver when we did a CT scan of your chest, please speak with your primary care doctor as they may consider additional imaging such as an ultrasound or CT of the abdomen. CT/CT chest wo IV con IMPRESSION: 1. No evidence of pneumonia. 2. The liver is heterogeneous and there is a question of a hypoattenuating masses in the liver. Further evaluation is recommended with CT scan of the abdomen and pelvis with and without contrast. Alternatively, liver ultrasound would be useful. Prescriptions: No Action fluticasone propion-salmeterol [Advair Diskus] 250-50 mcg/dose blister with device 1 inh inhalation BID Qty: 180 3RF lisinopril 20 mg tablet 20 mg PO DAILY Qty: 90 3RF hydrochlorothiazide 12.5 mg tablet 12.5 mg PO QAM Qty: 90 3RF sertraline 100 mg tablet 100 mg PO DAILY Qty: 90 3RF donepezil 10 mg tablet 10 mg PO DAILY Qty: 90 1RF atorvastatin 40 mg tablet 40 mg PO DAILY diltiazem HCl 120 mg capsule,extended release 24hr 120 mg PO DAILY albuterol sulfate 90 mcg/actuation HFA aerosol inhaler 2 puff inhalation Q6H PRN Eliquis 5 mg tablet 5 mg PO BID cholecalciferol (vitamin D3) 50 mcg (2,000 unit) tablet,chewable 50 mcg PO DAILY melatonin 10 mg capsule 10 mg PO BEDTIME PRN tadalafil 10 mg tablet 10 mg PO DAILY PRN (Reason: sexual activity) 90 Days Qty: 90 3RF Referrals: Tamera Mary MD [Primary Care Provider] - Interventions: ED Discharge Assessment Last Done: 07/24/24 00:33 Discharge Date/Time: 07/24/24 00:34 Print Language: Portuguese
[2024-07-23 15:55] VITALS: BP 139/65; PULSE 75; RESP 18; TEMP 36.8; O2SAT 99; BMI 28.4
[2024-07-23 16:12] LABS: MANUAL DIFF FLAG NO
[2024-07-23 16:18] LABS: Basophils Absolute Auto 0.1 X10*3/uL (0.0-0.2); Basophils Percent Auto 0.6 % (0-2); Eosinophils Absolute Auto 0.3 X10*3/uL (0.0-0.4); Hemoglobin 11.7 g/dl (14.0-18.0); Imm Gran Abs Auto 0.03 X10*3/uL (0.00-0.03); Imm Gran Pct Auto 0.3 % (0.0-0.4); Lymphocytes Absolute Auto 2.1 X10*3/uL (1.2-4.9); Lymphocytes Percent Auto 21.7 % (20-40); Mean Corpuscular HGB Conc 33.4 g/dl (31.0-36.0); Mean Corpuscular Volume 86.8 fL (80.0-98.0); Mean Platelet Volume 9.1 fL (9.4-12.4); Monocytes Absolute Auto 1.3 X10*3/uL (0.1-1.2); Monocytes Percent Auto 13.6 % (2-11); Neutrophils Absolute Auto 5.8 x10*3/uL (2.0-8.3); Neutrophils Percent Auto 60.8 % (45-73); Platelet Count 289 X10*3/uL (160-400); Red Blood Count 4.03 X10*6/uL (4.60-5.80); Red Cell Distribution Width 12.5 % (11.0-16.0); White Blood Count 9.6 X10*3/uL (4.8-10.8)
[2024-07-23 16:25] LABS: INTERNATIONAL NORM RATIO 1.5 (0.9-1.1); Prothrombin Time 18.6 SEC (11.1-13.3)
[2024-07-23 16:28] LABS: Partial Thromboplastin Time 40.2 SEC (26.0-36.8)
[2024-07-23 16:39] LABS: Alanine Aminotransferase 36 U/L (0-40); Albumin Level 3.7 g/dL (3.5-5.0); Alkaline Phosphatase 195 U/L (39-117); Anion Gap 13 (12-20); Aspartate Amino Transferase 32 U/L (5-37); Bilirubin Total 0.5 mg/dL (0.0-1.0); Blood Urea Nitrogen 17 mg/dL (9-16); Calcium 10.1 mg/dL (8.4-10.2); Carbon Dioxide 24 mmol/L (22-29); Chloride 107 mmol/L (96-108); Creatinine Clr Calc Pharmacy 96.4; Estimated Glomerular Filt Rate > 60; Glucose Random 93 mg/dL (60-115); Magnesium 1.9 mg/dL (1.6-2.6); Potassium 4.1 mmol/L (3.3-5.1); Sodium 140 mmol/L (135-145); Total Protein 7.9 g/dL (6.5-8.0)
[2024-07-23 16:46] LABS: Troponin-I High Sensitivity 5.5 ng/L (<3.5-35.0)
[2024-07-23 16:51] LABS: Influenza A PCR NEGATIVE (Negative); Influenza B PCR NEGATIVE (Negative); Resp Syncy Virus RNA Qual PCR NEGATIVE (Negative); SARS COV2 PCR INHOUSE NEGATIVE (Negative)
[2024-07-23 19:08] LABS: Troponin-I High Sensitivity 6.6 ng/L (<3.5-35.0)
[2024-07-23 21:13] VITALS: BP 138/84; PULSE 88; RESP 15; TEMP 36.9; O2SAT 98
--- NOTE | 2024-07-23 21:13 | MHC.EDTECH ---
Pt arrived from waiting room. pt changed into a hospital gown and p[laced on a cardian monitor. Pt is at bedside
[2024-07-23 23:09] LABS: B Type Natriuretic Peptide 127 pg/mL (<100)
[2024-07-23 23:17] VITALS: BP 111/75; PULSE 98; RESP 18; TEMP 36.9; O2SAT 97
[2024-07-24 00:33] VITALS: BP 111/75; PULSE 98; RESP 18; TEMP 36.9; O2SAT 97
== END 2024-07-24 00:34 | disposition home or self-care (01) ==
PROVIDERS: Nurse Practitioner Family; Physician Assistant Medical; Emergency Provider Internal Medicine; PCP Internal Medicine
DX: R07.89 Other chest pain (principal); R05.9 Cough, unspecified; R06.02 Shortness of breath; R93.2 Abnormal findings on diagnostic imaging of liver and biliary tract; Z03.818 Encounter for observation for suspected exposure to other biological agents ruled out; Z79.899 Other long term (current) drug therapy
CPT/HCPCS: 0241U; 36415; 71046; 71250; 80053; 83735; 83880; 84484; 85025; 85610; 85730; 93005; 99284; 99285

== ENCOUNTER → 2024-08-02 13:50 | Outpatient (AMB) | payer MEDICARE, SELFPAY ==
--- NOTE | 2024-08-02 14:24 | AM.OFFWIN_ITS ---
Intake Vital Signs 08/02/24 14:25 Height 5 ft 10 in Weight 194 lb BMI 27.8 BP 108/62 Blood Pressure Location Rt brachial Position Sitting Pulse 90 Pulse Source Pulse Oximeter Temp 98.3 F Temp Source Oral Pulse Oximetry (%) 98 Oxygen Delivery Method Room Air Intake Visit Reasons: EP stomach concerns Intake Note: pt c/o chills, Stomach cramps. no fever, no N/V, No diarrhea, Started 1 month ago. Resolving recently Patient Tobacco Use Status: Never used Tobacco Allergies No Known Allergies Allergy (Verified 08/02/24 14:24) Do you need a note to return to daycare/school/sports/work: No HPI HPI Comments History of Present Illness Details Patient is a 73-year-old male complaining of several weeks not feeling well. He states he has lingering dry cough, abdominal pain, shortness of breath and intermittent chills. He was evaluated at this clinic on July 18 where he had a chest x-ray and COVID test, chest x-ray was negative for anything acute and COVID test was negative. He states he had a couple episodes of left-sided chest pain on July 23 so he went to the [facility] Emergency Department where a thorough workup was done and nothing acute was found, his labs were normal. There was an acute finding on his liver that he was told to follow up CP 4. He states he just has some lingering lower abdominal pain but denies any nausea or vomiting. He has intermittent diarrhea as well but denies any bloody or black stools. He denies any fevers. FORMERLY [facility] Medical History (Updated 08/02/24 @ 15:43 by Indigo Llamas PA-C) Annual physical exam GERD (gastroesophageal reflux disease) Non-toxic multinodular goiter BPH w urinary obs/LUTS Vitamin B12 deficiency Hyperglycemia Thyroid nodule Hyperlipidemia Chronic asthma EVITA on CPAP Chronic depression HTN (hypertension) Paroxysmal atrial fibrillation Surgical History (Updated 03/06/24 @ 09:33 by Tamera Mary MD) H/O colonoscopy No pertinent past surgical history Family History Father CHF (congestive heart failure) Diabetes mellitus Mother Cancer Daughter No problems noted. Social History Housing: House Alcohol intake: never Patient Tobacco Use Status: Never used Tobacco e-Cigarette/Vaping Use: Never Used Second Hand Smoke Exposure: No service: Yes Current occupational status: retired Current occupational exposures/hazards: No Cognitive needs: No Hearing needs: No Vision needs: Yes Physical Exam Vital Signs: Last Vital Signs Temp 98.3 F 08/02/24 14:25 Pulse 90 08/02/24 14:25 BP 108/62 08/02/24 14:25 Pulse Ox 98 08/02/24 14:25 Oxygen Delivery Method Room Air 08/02/24 14:25 BMI result Body Mass Index 27.8 Const General: cooperative, healthy appearing, comfortable and no acute distress Orientation/consciousness: patient oriented x3 Limitations: no limitations HEENT Head: Yes normal to inspection Ears: hearing grossly normal bilaterally, external ears normal and TM's normal bilaterally General nose exam: Normal external nose present, Normal nares present and No nasal discharge present Face and sinus: Yes normal facial exam and Yes sinuses nontender Mouth: Normal oral and palatal mucosa present and moist mucous membranes Throat: Yes tonsils normal, Yes uvula midline and Yes posterior oropharynx abnormal (Erythema) Eyes General: appearance normal, both eyes and all related structures Neck Neck: Yes normal visual inspection Resp Effort & Inspection: normal respiratory effort, able to speak in complete sentences, Actively coughing, no respiratory distress, not tachypneic, no tripod positioning and no use of accessory muscles Auscultation: clear to auscultation bilaterally Cardio Rate: regular rate and Other Rhythm: abnormal rhythm regularly irregular Heart sounds: normal S1 and S2 Skin General skin exam: no rashes or lesions noted Neuro General: patient oriented x3 Extrem General: Yes normal to inspection and Yes no clubbing, cyanosis or edema Assessment & Plan Assessment & Plan (1) Walking pneumonia: Code(s): J18.9 - Pneumonia, unspecified organism Plan: Vital signs are stable, lungs are clear and patient is well-appearing, likely walking pneumonia, sent Z-Jasen. (2) Abdominal pain: Code(s): R10.9 - Unspecified abdominal pain Qualifiers: Abdominal location: lower abdomen, unspecified Qualified Code(s): R10.30 - Lower abdominal pain, unspecified Plan: Patient had thorough workup on July 23 in the emergency department, abdominal exam is unremarkable in his vital signs are stable, he is well-appearing. No fevers, we will send Ariadna for pain Plan See above Medications: New dicyclomine 20 mg PO TID PRN 10 tabs 0RF abdominal pain azithromycin For 250 mg dose pack: take 500 mg today (day 1), then 250 mg for 4 days (days 2-5) PO 6 tabs 0RF Coding Level of Care Code Est Pt Level 4 (97206) Diagnoses Walking pneumonia J18.9 Lower abdominal pain R10.30 Abdominal location: lower abdomen, unspecified
[2024-08-02 14:25] VITALS: BP 108/62; PULSE 90; TEMP 36.8; O2SAT 98; BMI 27.8
== END ==
PROVIDERS: PCP Internal Medicine; Visit Provider Physician Assistant
DX: J18.9 Pneumonia, unspecified organism (principal); R10.30 Lower abdominal pain, unspecified
CPT/HCPCS: 99214

== ENCOUNTER 2024-08-05 12:37 | Emergency (ER) | payer MEDICARE, SELFPAY ==
--- NOTE | ~2024-08-05 | XR_ITS ---
EXAMINATION: XR CHEST CLINICAL INFORMATION: Shortness of breath. COMPARISON: Chest x-rays of 07/23/2024 and 07/18/2024. Chest CT of 07/23/2024. TECHNIQUE: 2 views of the chest were obtained. FINDINGS: Cardiomediastinal silhouette is unchanged and within normal limits. No abnormal tracheal deviation. Lungs are mildly hyperinflated. No focal consolidation, changes of congestion, pleural effusions, or pneumothorax are seen. A cardiac loop recorder device is noted projecting over the left mid chest anteriorly. The regional skeleton is intact. Multilevel degenerative changes are noted in the spine. XR/XR chest 2V IMPRESSION: No radiographic evidence of pneumonia or pulmonary edema. Mildly hyperinflated lungs. No acute pulmonary process. Electronically signed by: Sarah Gomes MD 08/05/2024 03:25 PM EDT
[2024-08-05 12:39] VITALS: BP 117/84; PULSE 93; RESP 19; TEMP 36.6; O2SAT 100; BMI 27.5
--- NOTE | 2024-08-05 12:40 | ED.GENADULT ---
HPI - General Adult General Chief complaint: Upper Respiratory Symptoms Stated complaint: Diff breathing low o2 Time Seen by Provider: 08/05/24 14:18 Source: patient and RN notes reviewed Mode of arrival: ambulatory Limitations: no limitations History of Present Illness ED Provider: Jolene Garcia PA-C HPI narrative: This is a 73-year-old male, with a history of GERD, BPH, paroxysmal atrial fibrillation on eliquis, hyperlipidemia, hypertension, who presents emergency department complaining of not feeling well for the last month and a half. Patient states that he has had intermittent subjective fevers and chills as well as episodes of shortness for breath for the last month and a half. Patient was seen here in the emergency room on July 23, 2024 for these symptoms. He had a CTA of the chest revealing no pneumonia, there was a hypoattenuating mass in the liver, otherwise workup was reassuring. He states that he continues to have these episodes, and was seen at a walk-in last week where he was prescribed azithromycin. He states that he finish the entire course however his symptoms persisted. He states that today he was not feeling well and applied a pulse oximeter on his finger and noticed his O2 saturation was in the 70s. Upon arrival, oxygen saturation has been 100% on room air. He denies any documented fevers, states no chest pain or palpitations. Denies any abdominal pain, nausea, vomiting. He does report some diarrhea, states that last episode was several days ago, which he attributes to the antibiotic. No bloody or black stool. No other complaints or concerns at this time. MD complaint: Fevers, shortness of breath Related Data Home Medications ?Medication ?Instructions ?Recorded ?Confirmed atorvastatin 40 mg tablet 40 mg PO DAILY 10/02/20 03/06/24 cholecalciferol (vitamin D3) 50 50 mcg PO DAILY 04/15/21 03/06/24 mcg (2,000 unit) chewable tablet apixaban 5 mg tablet (Eliquis) 5 mg PO BID 11/10/21 03/06/24 melatonin 10 mg capsule 10 mg PO BEDTIME PRN 01/31/24 03/06/24 albuterol sulfate 90 mcg/actuation 2 puff inhalation Q6H PRN 07/18/24 aerosol inhaler diltiazem HCl 120 mg 120 mg PO DAILY 07/18/24 capsule,extended release 24 hr Previous Rx's ?Medication ?Instructions ?Recorded Advair Diskus 250 mcg-50 mcg/dose 1 inh inhalation BID #180 ea 01/06/24 powder for inhalation (fluticasone propion-salmeterol) tadalafil 10 mg tablet 10 mg PO DAILY PRN sexual activity 01/31/24 90 days #90 tabs hydrochlorothiazide 12.5 mg tablet 12.5 mg PO QAM #90 tabs 03/30/24 lisinopril 20 mg tablet 20 mg PO DAILY #90 tabs 03/30/24 sertraline 100 mg tablet 100 mg PO DAILY #90 tabs 03/30/24 donepezil 10 mg tablet 10 mg PO DAILY #90 tabs 06/13/24 azithromycin 250 mg tablet See Rx Instructions PO .COMPLEX #6 08/02/24 tabs dicyclomine 20 mg tablet 20 mg PO TID PRN abdominal pain 08/02/24 #10 tabs Allergies Allergy/AdvReac Type Severity Reaction Status Date / Time No Known Allergies Allergy Verified 08/05/24 12:41 Review of Systems Review of Systems: Yes all other systems are reviewed and are negative Constitutional: Constitutional: Reports as per HPI [facility] Past Medical History Medical History (Updated 08/05/24 @ 17:09 by JOANN Palomares) Annual physical exam GERD (gastroesophageal reflux disease) Non-toxic multinodular goiter BPH w urinary obs/LUTS Vitamin B12 deficiency Hyperglycemia Thyroid nodule Hyperlipidemia Chronic asthma EVITA on CPAP Chronic depression HTN (hypertension) Paroxysmal atrial fibrillation Surgical History (Updated 03/06/24 @ 09:33 by Tamera Mary MD) H/O colonoscopy No pertinent past surgical history Family History Family History Father CHF (congestive heart failure) Diabetes mellitus Mother Cancer Daughter No problems noted. Social History Social History Housing: House Alcohol intake: never Patient Tobacco Use Status: Never used Tobacco Smoked in Last 30 Days: No e-Cigarette/Vaping Use: Never Used Second Hand Smoke Exposure: No Use of substances other than those prescribed or required for medical reasons: No Advance Directives: No Advance Directives Information Provided: No Do you have a plan to hurt others: No Plan service: Yes Current occupational status: retired Current occupational exposures/hazards: No Cognitive needs: No Hearing needs: No Vision needs: Yes Physical Exam ED Vital Signs: Vital Signs - 24 hr 08/05/24 12:39 08/05/24 13:02 08/05/24 15:11 Temperature 98 F 97.9 F Pulse Rate 93 99 Respiratory Rate 19 18 Blood Pressure 117/84 128/66 Pulse Oximetry 100 98 100 Oxygen Delivery Method Room Air Room Air Room Air BMI result Body Mass Index 27.5 Const General: cooperative, comfortable and no acute distress Orientation/consciousness: patient oriented x3 Limitations: no limitations HENMT Head: Yes normal to inspection, Yes normocephalic and Yes atraumatic Ears: hearing grossly normal bilaterally General nose exam: Normal external nose present Face and sinus: Yes normal facial exam Mouth: Normal oral and palatal mucosa present, oropharynx normal and moist mucous membranes Throat: Yes posterior oropharynx normal Eyes General: appearance normal, both eyes and all related structures Eyelids: Yes eyelids normal Conjunctivae: conjunctivae normal Sclerae: sclerae normal Pupils: Equal, round and reactive pupils present EOM: EOMs intact bilaterally Neck Neck: Yes normal visual inspection, Yes full ROM and Yes no lymphadenopathy Lymphatic: no lymphadenopathy noted Chest Chest palpation & inspection: normal inspection of the chest Resp Effort & Inspection: normal respiratory effort and able to speak in complete sentences Auscultation: clear to auscultation bilaterally, no crackles, no rales, no rhonchi and no wheezes Cardio Other: Irregularly irregular rate and rhythm Heart sounds: S1 normal heart sound present and S2 normal heart sound present GI Other: Abdomen is soft, nontender, nondistended Inspection: Yes normal to inspection Skin General skin exam: no rashes or lesions noted Trauma: no lacerations or abrasions Wounds: no wounds Neuro General: patient oriented x3 and moves all extremities Cranial nerves: Yes Equal, round and reactive pupils present Extrem Other: No lower extremity edema. General: Yes normal to inspection Right upper extremity: normal to inspection Left upper extremity: normal to inspection Right lower extremity: normal to inspection Left lower extremity: normal to inspection Course Course Course Narrative: RME performed by Carolyn Ritchie PA-C. Patient is a 73 year old assigned male at presenting to the emergency department with shortness of breath. Patient states his oxygenation has been low at home and he has been having episodes of significant shortness of breath. Detailed physical exam and review of systems are deferred to the servomechanism designer. EKG, labs, imaging, and swabs ordered. Patient placed back in the waiting room pending room availability and results. Reevaluation(s) Reevaluation #1: Ambulatory O2 sat stable between 93 and 97, he has had no episodes of hypoxia. Rate has been controlled. Time: 16:50 Reevaluation #2: Patient has been in the emergency room for approximately 5 hours without any episodes of hypoxia, we were able to walk him without any episodes of hypoxia. It is unclear whether not his pulse ox diameter is inaccurate or not getting a good read. His workup today otherwise was reassuring today. He does have mild elevation in his liver transaminases, increased from his previous visit on July 23, 2024 I discussed this finding with patient as well as daughter. I also discussed the possible liver mass that was found on his CT scan at that time as well. Stressed the importance of following up with his primary care physician regarding this, and advised to have repeat liver transaminases. He does have slight elevation in BNP however lower extremities are nonedematous. It is unclear what is causing his symptoms however may be viral in nature. Tick-borne illnesses were also drawn as well as respiratory panel. Patient is feeling well, eager for discharge, patient stable for discharge with strict return precautions. He has follow-up with his enrollment eligibility representative on August 14. Time: 17:23 Medical Decision Making Medical Decision Making MDM Narrative: This is a 73-year-old male, with a history of GERD, BPH, paroxysmal atrial fibrillation, hyperlipidemia, hypertension, who presents emergency department complaining of not feeling well for the last month and a half. Patient has had episodes of shortness for breath, subjective fevers and chills ongoing for the last month and a half. He has had no known tick bites. On arrival, patient oxygen saturation 100% on room air, he is rate controlled at 93 beats per minute, EKG revealing atrial fibrillation. Chest CT revealing heterogeneous and question of hypoattenuating mass in the liver a chest CT that was performed on July 23, 2024. Labs returned, no leukocytosis, H&H revealing normocytic anemia, chemistry revealing elevated liver enzymes of an AST and ALT of 46 and alk phos of 230. BNP slightly elevated at 150, he has no lower extremity swelling. Urine with small leuk esterases, no bacteria seen. Viral swabs negative. Plan: Labs, EKG, chest x-ray, UA, viral swabs Differential Diagnosis Differential Diagnoses: The differential diagnosis associated with the presentation includes ACS-unlikely, CHF, pneumonia, URI Lab Data MDM Lab Attestation statement: I reviewed the patient's lab results. No leukocytosis, H&H revealing normocytic anemia at 11.3/34.6, chemistry revealing an elevated AST ALT at 46, alk phos at 2:30 a.m., BNP 150, urine does not appear to be infected, viral swabs negative. 08/05/24 12:56 08/05/24 12:56 Labs: Lab Results 08/05/24 Range/Units 12:56 WBC 10.7 (4.8-10.8) X10*3/uL RBC 3.98 L (4.60-5.80) X10*6/uL Hgb 11.3 L (14.0-18.0) g/dl Hct 34.6 L (42.0-52.0) % MCV 86.9 (80.0-98.0) fL MCH 28.4 (27.0-33.0) pg MCHC 32.7 (31.0-36.0) g/dl RDW 12.7 (11.0-16.0) % Plt Count 396 D (160-400) X10*3/uL MPV 9.3 L (9.4-12.4) fL Immature Gran % (Auto) 0.4 (0.0-0.4) % Neut % (Auto) 64.1 (45-73) % Lymph % (Auto) 19.8 L (20-40) % [place] % (Auto) 12.9 H (2-11) % Eos % (Auto) 2.3 (0-4) % Baso % (Auto) 0.5 (0-2) % Lymph # (Auto) 2.1 (1.2-4.9) X10*3/uL [place] # (Auto) 1.4 H (0.1-1.2) X10*3/uL Eos # (Auto) 0.3 (0.0-0.4) X10*3/uL Baso # (Auto) 0.1 (0.0-0.2) X10*3/uL Abs Immat Gran (auto) 0.04 H (0.00-0.03) X10*3/uL Absolute Neuts (auto) 6.9 (2.0-8.3) x10*3/uL Absolute Nucleated RBC 0.000 (0.0-0.012) X10*3/uL Nucleated RBC % (auto) 0.0 (0.0-0.2) /100WBC Sodium 139 (135-145) mmol/L Potassium 3.7 (3.3-5.1) mmol/L Chloride 107 (96-108) mmol/L Carbon Dioxide 23 (22-29) mmol/L Anion Gap 13 (12-20) BUN 15 (9-16) mg/dL Creatinine 0.77 (0.5-1.4) mg/dL Estim Creat Clear Calc 89.5 Estimated GFR > 60 Random Glucose 105 (60-115) mg/dL Calcium 10.2 (8.4-10.2) mg/dL Magnesium 1.7 (1.6-2.6) mg/dL Total Bilirubin 0.6 (0.0-1.0) mg/dL AST 46 H (5-37) U/L ALT 46 H (0-40) U/L Alkaline Phosphatase 230 H (39-117) U/L Troponin I High Sens 3.6 (<3.5-35.0) ng/L B-Natriuretic Peptide 150 H (<100) pg/mL Total Protein 8.1 H (6.5-8.0) g/dL Albumin 3.6 (3.5-5.0) g/dL Urine Color Dark Yellow Urine Appearance Clear Urine pH 5.0 (5.0-9.0) Ur Specific [place] 1.025 (1.005-1.025) Urine Protein Trace (Neg-Trace) mg/dL Urine Glucose (UA) Negative (Negative) mg/dL Urine Ketones Trace (Negative) mg/dL Urine Blood Negative (Negative) Urine Nitrite Negative (Negative) Ur Leukocyte Esterase Small (1+) H (Negative) Urine RBC 0-2 (0-2) /HPF Urine WBC 0-5 (0-5) /HPF Ur Squamous Epith Cells 0-2 (0-2) /HPF Urine Bacteria None Seen (None Seen) Hyaline Casts 0-2 (0-2) /LPF Influenza Type A (PCR) NEGATIVE (Negative) Influenza Type B (PCR) NEGATIVE (Negative) RSV RNA Qual (PCR) NEGATIVE (Negative) SARS-CoV-2 RNA (RT-PCR) NEGATIVE (Negative) Independent Interpretation I performed an independent interpretation of an: EKG Interpretation: Atrial fibrillation at a ventricular rate of 89 beats per minute, QT QTC 374/455, no ST elevation or depression Radiology Impression Discussion of test interpretation with radiology: I have reviewed the radiologist's reading. Radiologist Impression: XR/XR chest 2V IMPRESSION: No radiographic evidence of pneumonia or pulmonary edema. Mildly hyperinflated lungs. No acute pulmonary process. Electronically signed by: Sarah Gomes MD 08/05/2024 03:25 PM EDT RP Workstation: [email or web address] Dictated By: Sarah Gomes MD Signed By: <Electronically signed b Discharge Plan Discharge Clinical Impression: Shortness of breath Patient Disposition: Home, Self-Care Instructions: Shortness of Breath (ED) Additional Instructions: You were seen in the emergency department due to shortness for breath. Overall your workup today was reassuring. Your blood work was reassuring. Your EKG shows sign of atrial fibrillation which is chronic for you. You also have an incidental finding on your CT scan which was identified on July 23, 2024, I would like for you to have your primary care physician follow this and may consider additional imaging such as ultrasound or CT scan of the abdomen. You also have elevation in your liver transaminases, that were slightly more elevated today than they were previously. You should have these repeated in 1-2 weeks through your primary care office. We also tested you for other respiratory pathogens as well as tick-borne illnesses, these take several days for them to return, we will call you if any of these are positive. You may also follow-up with the care coordination manager. If any new or worsening symptoms occur including but not limited to worsening shortness breath, chest pain, please seek emergent care. Prescriptions: No Action fluticasone propion-salmeterol [Advair Diskus] 250-50 mcg/dose blister with device 1 inh inhalation BID Qty: 180 3RF lisinopril 20 mg tablet 20 mg PO DAILY Qty: 90 3RF hydrochlorothiazide 12.5 mg tablet 12.5 mg PO QAM Qty: 90 3RF sertraline 100 mg tablet 100 mg PO DAILY Qty: 90 3RF donepezil 10 mg tablet 10 mg PO DAILY Qty: 90 1RF atorvastatin 40 mg tablet 40 mg PO DAILY diltiazem HCl 120 mg capsule,extended release 24hr 120 mg PO DAILY albuterol sulfate 90 mcg/actuation HFA aerosol inhaler 2 puff inhalation Q6H PRN dicyclomine 20 mg tablet 20 mg PO TID PRN (Reason: abdominal pain) Qty: 10 0RF azithromycin 250 mg tablet See Rx Instructions PO .COMPLEX Qty: 6 0RF Rx Instructions: For 250 mg dose pack: take 500 mg today (day 1), then 250 mg for 4 days (days 2-5) PO Eliquis 5 mg tablet 5 mg PO BID cholecalciferol (vitamin D3) 50 mcg (2,000 unit) tablet,chewable 50 mcg PO DAILY melatonin 10 mg capsule 10 mg PO BEDTIME PRN tadalafil 10 mg tablet 10 mg PO DAILY PRN (Reason: sexual activity) 90 Days Qty: 90 3RF [place] [facility] [place] Group] Print Language: Palestinian
--- NOTE | 2024-08-05 12:41 | ECG_ITS ---
Test Reason : sob Blood Pressure : / mmHG Vent. Rate : 089 BPM Atrial Rate : 000 BPM P-R Int : 000 ms QRS Dur : 094 ms QT Int : 374 ms P-R-T Axes : 000 -11 040 degrees QTc Int : 455 ms Atrial fibrillation Abnormal ECG When compared with ECG of 23-JUL-2024 15:43, No significant change was found Referred By: Carolyn Ritchie Electronically Signed By:DESIRAE SHIELDS
[2024-08-05 13:02] VITALS: BP 128/66; PULSE 99; RESP 18; TEMP 36.6; O2SAT 98
[2024-08-05 13:04] LABS: MANUAL DIFF FLAG NO
--- NOTE | 2024-08-05 13:06 | PC.NURSE ---
Pt comes from home for SOB x1 month. Pt states this morning his O2 desat to 85% while standing up. Pt states he feels SOB, no increased WOB noted. A/ox4, lung sounds cta bilaterally, no wheezing/rhonci heard, no increased WOB, pt speaking in full sentences, s1 and s2 heard, abdomen soft, non-tender on palpation. Pt states he had one episode of non-radiating sharp cp but has since subsided. Pt states no sick contacts recently, endorses recent fevers- temp 98.2 orally. Call kat within reach, family at bedside, no pain at this time, all needs met.
[2024-08-05 13:14] LABS: Basophils Absolute Auto 0.1 X10*3/uL (0.0-0.2); Basophils Percent Auto 0.5 % (0-2); Eosinophils Absolute Auto 0.3 X10*3/uL (0.0-0.4); Eosinophils Percent Auto 2.3 % (0-4); Hematocrit 34.6 % (42.0-52.0); Hemoglobin 11.3 g/dl (14.0-18.0); Imm Gran Abs Auto 0.04 X10*3/uL (0.00-0.03); Imm Gran Pct Auto 0.4 % (0.0-0.4); Lymphocytes Absolute Auto 2.1 X10*3/uL (1.2-4.9); Lymphocytes Percent Auto 19.8 % (20-40); Mean Corpuscular HGB Conc 32.7 g/dl (31.0-36.0); Mean Corpuscular Hemoglobin 28.4 pg (27.0-33.0); Mean Corpuscular Volume 86.9 fL (80.0-98.0); Mean Platelet Volume 9.3 fL (9.4-12.4); Monocytes Absolute Auto 1.4 X10*3/uL (0.1-1.2); Monocytes Percent Auto 12.9 % (2-11); Neutrophils Absolute Auto 6.9 x10*3/uL (2.0-8.3); Neutrophils Percent Auto 64.1 % (45-73); Platelet Count 396 X10*3/uL (160-400); Red Blood Count 3.98 X10*6/uL (4.60-5.80); Red Cell Distribution Width 12.7 % (11.0-16.0); White Blood Count 10.7 X10*3/uL (4.8-10.8)
[2024-08-05 13:15] LABS: Appearance Urine Clear; Color Urine Dark Yellow; Glucose Urine UA Negative (Negative); Leukocyte Esterase Urine Small (1+) (Negative); Nitrite Urine Negative (Negative); Specific Gravity - Urine 1.025 (1.005-1.025); UMIC TRIGGER UACC YES; Urine Blood Negative (Negative); Urine Ketones Trace mg/dL (Negative); Urine Protein Trace mg/dL (Neg-Trace)
[2024-08-05 13:21] LABS: Alanine Aminotransferase 46 U/L (0-40); Albumin Level 3.6 g/dL (3.5-5.0); Alkaline Phosphatase 230 U/L (39-117); Anion Gap 13 (12-20); Aspartate Amino Transferase 46 U/L (5-37); Bilirubin Total 0.6 mg/dL (0.0-1.0); Blood Urea Nitrogen 15 mg/dL (9-16); Calcium 10.2 mg/dL (8.4-10.2); Carbon Dioxide 23 mmol/L (22-29); Chloride 107 mmol/L (96-108); Creatinine Clr Calc Pharmacy 89.5; Estimated Glomerular Filt Rate > 60; Glucose Random 105 mg/dL (60-115); Magnesium 1.7 mg/dL (1.6-2.6); Potassium 3.7 mmol/L (3.3-5.1); Sodium 139 mmol/L (135-145); Total Protein 8.1 g/dL (6.5-8.0)
[2024-08-05 13:29] LABS: Troponin-I High Sensitivity 3.6 ng/L (<3.5-35.0)
[2024-08-05 13:30] LABS: Bacteria Urine None Seen (None Seen); Hyaline Casts Urine 0-2 /LPF (0-2); RBC Urine 0-2 /HPF (0-2); Squamous Epithelial Cell Urine 0-2 /HPF (0-2); UACC Culture Trigger YES; WBC Urine 0-5 /HPF (0-5)
[2024-08-05 14:00] LABS: Influenza A PCR NEGATIVE (Negative); Influenza B PCR NEGATIVE (Negative); Resp Syncy Virus RNA Qual PCR NEGATIVE (Negative); SARS COV2 PCR INHOUSE NEGATIVE (Negative)
[2024-08-05 15:07] LABS: B Type Natriuretic Peptide 150 pg/mL (<100)
[2024-08-05 15:11] VITALS: O2SAT 100
[2024-08-05 16:00] VITALS: BP 126/67; PULSE 99; RESP 18; TEMP 36.8; O2SAT 98
[2024-08-06 09:15] LABS: Adenovirus PCR Not Detected (Not Detect.); Bordetella parapertussis PCR Not Detected (Not Detect.); Bordetella pertussis PCR Not Detected (Not Detect.); Chlamydia pneumoniae PCR Not Detected (Not Detect.); Coronavirus 229E PCR Not Detected (Not Detect.); Coronavirus HKU1 PCR Not Detected (Not Detect.); Coronavirus NL63 PCR Not Detected (Not Detect.); Coronavirus OC43 PCR Not Detected (Not Detect.); Human metapneumovirus PCR Not Detected (Not Detect.); Influenza A PCR Not Detected (Not Detect.); Influenza B PCR Not Detected (Not Detect.); Mycoplasma pneumoniae PCR Not Detected (Not Detect.); Parainfluenza 1 PCR Not Detected (Not Detect.); Parainfluenza 2 PCR Not Detected (Not Detect.); Parainfluenza 3 PCR Not Detected (Not Detect.); Parainfluenza 4 PCR Not Detected (Not Detect.); RSV PCR Not Detected (Not Detect.); Rhino/Enterovirus PCR Not Detected (Not Detect.)
[2024-08-06 09:28] LABS: SARS-CoV-2 PCR Not Detected (Not Detect.)
[2024-08-07 21:58] LABS: Lyme Abs Screen <0.90 index
[2024-08-08 01:08] LABS: A. Phagocytphilium DNA,RT-PCR NOT DETECTED (NOT DETECTED); Babesia Microti DNA, RT-PCR NOT DETECTED (NOT DETECTED); Borrelia Miyamotoi,DNA RT-PCR NOT DETECTED (NOT DETECTED); E.Chaffeensis DNA RT-PCR NOT DETECTED (NOT DETECTED); Lyme(Borrelia ssp)DNA RT-PCR NOT DETECTED (NOT DETECTED)
[2024-08-09 02:13] LABS: A. Phagocytophilum Ab IgG <1:64 (<1:64); A. Phagocytophilum Ab IgM <1:20 (<1:20); E. Chaffeensis Ab IgG <1:64 (<1:64); E. Chaffeensis Ab IgM <1:20 (<1:20)
[2024-08-09 05:54] LABS: Babesia IgG <1:64 titer (<1:64); Babesia IgM <1:20 titer (<1:20)
== END 2024-08-05 17:51 | disposition home or self-care (01) ==
PROVIDERS: Physician Assistant Medical; Emergency Provider Emergency Medicine Emergency Medical Services; PCP Internal Medicine
DX: R06.02 Shortness of breath (principal); I48.91 Unspecified atrial fibrillation; R50.9 Fever, unspecified; R53.1 Weakness; R16.0 Hepatomegaly, not elsewhere classified; Z03.818 Encounter for observation for suspected exposure to other biological agents ruled out; Z79.01 Long term (current) use of anticoagulants; Z79.899 Other long term (current) drug therapy
CPT/HCPCS: 0241U; 36415; 71046; 80053; 81001; 83735; 83880; 84484; 85025; 86617; 86618; 86666; 86753; 87086; 87468; 87469; 87478; 87484; 87633; 87798; 93005; 99284; 99285

== ENCOUNTER 2024-08-21 09:28 | Outpatient (REF) | payer MEDICARE, SELFPAY ==
[2024-08-21 13:33] LABS: Basophils Absolute Auto 0.1 X10*3/uL (0.0-0.2); Basophils Percent Auto 0.4 % (0-2); Eosinophils Absolute Auto 0.1 X10*3/uL (0.0-0.4); Eosinophils Percent Auto 0.7 % (0-4); Hemoglobin 10.3 g/dl (14.0-18.0); Imm Gran Abs Auto 0.11 X10*3/uL (0.00-0.03); Imm Gran Pct Auto 0.8 % (0.0-0.4); Lymphocytes Absolute Auto 1.5 X10*3/uL (1.2-4.9); Lymphocytes Percent Auto 10.5 % (20-40); MANUAL DIFF FLAG SCAN; Mean Corpuscular HGB Conc 32.2 g/dl (31.0-36.0); Mean Corpuscular Hemoglobin 27.5 pg (27.0-33.0); Mean Corpuscular Volume 85.6 fL (80.0-98.0); Mean Platelet Volume 9.7 fL (9.4-12.4); Monocytes Absolute Auto 1.6 X10*3/uL (0.1-1.2); Monocytes Percent Auto 11.5 % (2-11); Neutrophils Absolute Auto 10.8 x10*3/uL (2.0-8.3); Neutrophils Percent Auto 76.1 % (45-73); Platelet Count 594 X10*3/uL (160-400); Red Blood Count 3.74 X10*6/uL (4.60-5.80); Red Cell Distribution Width 13.2 % (11.0-16.0); SCAN SMEAR FLAG 1; White Blood Count 14.2 X10*3/uL (4.8-10.8)
[2024-08-21 13:55] LABS: SLIDE REVIEW VERIFIED
[2024-08-21 14:02] LABS: Alanine Aminotransferase 56 U/L (0-40); Albumin Level 3.1 g/dL (3.5-5.0); Alkaline Phosphatase 376 U/L (39-117); Anion Gap 11 (12-20); Aspartate Amino Transferase 79 U/L (5-37); Bilirubin Total 0.9 mg/dL (0.0-1.0); Blood Urea Nitrogen 17 mg/dL (9-16); Calcium 9.9 mg/dL (8.4-10.2); Carbon Dioxide 27 mmol/L (22-29); Chloride 102 mmol/L (96-108); Cholesterol 69 mg/dL (<200); Estimated Glomerular Filt Rate > 60; Glucose Fasting 104 mg/dL (60-99); HDL Cholesterol 16 mg/dL (>40); Iron 16 mcg/dL (45-160); LDL Cholesterol Calculated 38 mg/dL (<100); Percent Iron Saturation 14 % (15-50); Potassium 3.8 mmol/L (3.3-5.1); Sodium 136 mmol/L (135-145); Total Iron Binding Capacity 113 mcg/dL (228-428); Total Protein 7.7 g/dL (6.5-8.0); Triglycerides 78 mg/dL (<150); Unsaturated Iron Binding 97 ug/dL
[2024-08-21 14:05] LABS: TSH reflex Free T4 1.18 uIU/mL (0.32-4.0); Vitamin D 25-OH Total 3.6 ng/mL (>30)
[2024-08-21 15:31] LABS: Folate 9.5 ng/mL (> or = 4.0); Vitamin B12 1650 pg/mL (200-900)
[2024-08-21 16:06] LABS: Estimated Average Glucose 123 mg/dL; Hemoglobin A1C 106.6015 umol/L; Hemoglobin A1c % 5.9 % (<6.0)
[2024-08-21 17:07] LABS: Microalbum/Creatinine Ratio Ur 7.1 ug/mg cr (<30)
[2024-08-23 20:29] LABS: IgA 557 mg/dL (70-320); IgG 1734 mg/dL (600-1540); IgM 130 mg/dL (50-300)
== END 2024-08-21 09:29 | disposition home or self-care (01) ==
LOC: HO.HMGCLDS 09:28
PROVIDERS: PCP Internal Medicine; Visit Provider Internal Medicine
DX: Z00.00 Encounter for general adult medical examination without abnormal findings (principal); E55.9 Vitamin D deficiency, unspecified; E53.8 Deficiency of other specified B group vitamins; I48.0 Paroxysmal atrial fibrillation; E78.5 Hyperlipidemia, unspecified; I10 Essential (primary) hypertension; R73.9 Hyperglycemia, unspecified; D64.9 Anemia, unspecified; R16.0 Hepatomegaly, not elsewhere classified
CPT/HCPCS: 36415; 80053; 80061; 82043; 82306; 82570; 82607; 82746; 82784; 83036; 83540; 84443; 85025; 86334

== ENCOUNTER 2024-08-25 08:49 | Outpatient (REF) | payer MEDICARE, SELFPAY ==
[2024-08-25 11:33] LABS: Appearance Urine Turbid; Color Urine Dark Yellow; Glucose Urine UA Negative (Negative); Leukocyte Esterase Urine Trace (Negative); Nitrite Urine Negative (Negative); PH 5.5 (5.0-9.0); Specific Gravity - Urine >= 1.030 (1.005-1.025); UMIC TRIGGER UA YES; Urine Blood Negative (Negative); Urine Ketones Negative (Negative); Urine Protein 30 (1+) mg/dL (Neg-Trace)
[2024-08-25 11:36] LABS: Bacteria Urine None Seen (None Seen); Hyaline Casts Urine 0-2 /LPF (0-2); RBC Urine 0-2 /HPF (0-2); Squamous Epithelial Cell Urine 0-2 /HPF (0-2); WBC Urine 0-5 /HPF (0-5)
== END 2024-08-25 08:50 | disposition home or self-care (01) ==
LOC: HO.HMGCLDS 08:49
PROVIDERS: PCP Internal Medicine; Visit Provider Internal Medicine
DX: D72.829 Elevated white blood cell count, unspecified (principal)
CPT/HCPCS: 81001; 87086

== ENCOUNTER 2024-08-27 09:58 | Outpatient (AMB) | payer MEDICARE, SELFPAY ==
--- NOTE | 2024-08-27 10:07 | MHC.PC.OV ---
Vital Signs 08/27/24 10:09 Height 5 ft 10 in Weight 186 lb BMI 26.7 BP 118/72 Blood Pressure Location Lt brachial Position Sitting Pulse 86 Pulse Source Pulse Oximeter Pulse Oximetry (%) 99 Oxygen Delivery Method Room Air Intake Visit Reasons: 6M f/U - see comments Intake Note: Pt is here today for 6 months follow up visit. Allergies No Known Allergies Allergy (Verified 08/05/24 12:41) Medication List - Last Reconciled 08/27/24 by Tamera Mary MD Advair Diskus 250-50 mcg/dose (fluticasone propion-salmeterol) 1 inh inhalation BID NS albuterol sulfate 90 mcg/actuation 2 puffs inhalation Q6H PRN apixaban (Eliquis) 5 mg PO BID atorvastatin 40 mg PO DAILY cholecalciferol (vitamin D3) 50 mcg PO DAILY dicyclomine 20 mg PO TID PRN diltiazem HCl CD (Cardizem CD) 180 mg PO DAILY donepezil 10 mg PO DAILY hydrochlorothiazide 12.5 mg PO QAM lisinopril 20 mg PO DAILY melatonin 10 mg PO BEDTIME PRN sertraline 100 mg PO DAILY tadalafil 10 mg PO DAILY PRN 90 days Tobacco use date assessed: 08/27/24 Fall risk assessment: No Falls in past year Last assessed Fall Risk: 08/27/24 Dental Screening Dental Screen Date: 08/27/24 Did you have a dental visit in the last 12 months?: Yes Did you have a dental problem in the last 6 months where you did not have access to dental care?: No Was dental information given to patient?: Patient has dentist HPI 6M f/U - see comments HPI Details Patient presents for the follow-up. He follow-up with GI for abdominal pain and bloating was found to have multiple liver lesions and 2 cm pancreatic mass on CT of the abdomen. Patient is being referred for ultrasound-guided liver biopsy and oncology evaluation at [facility]. Patient complains of decreasing appetite, weight loss, nausea bloating lightheadedness and chills but no fever. He denies diarrhea hematochezia melena. Cardizem dose was recently increased by Cardiology for rapid AFib and patient remains on Eliquis for anticoagulation. [facility] Medical History Annual physical exam GERD (gastroesophageal reflux disease) Non-toxic multinodular goiter BPH w urinary obs/LUTS Vitamin B12 deficiency Hyperglycemia Thyroid nodule Hyperlipidemia Chronic asthma EVITA on CPAP Chronic depression HTN (hypertension) Paroxysmal atrial fibrillation Surgical History H/O colonoscopy No pertinent past surgical history Family History Father CHF (congestive heart failure) Diabetes mellitus Mother Cancer Daughter No problems noted. Social History Housing: House Alcohol intake: never Patient Tobacco Use Status: Never used Tobacco e-Cigarette/Vaping Use: Never Used Second Hand Smoke Exposure: No service: Yes Current occupational status: retired Current occupational exposures/hazards: No Cognitive needs: No Hearing needs: No Vision needs: Yes Questionnaire PHQ-9 Over the last 2 weeks, how often have you been bothered by any of the following problems? 1. Little interest or pleasure in doing things: not at all 2. Feeling down, depressed, or hopeless: not at all 3. Trouble falling or staying asleep, or sleeping too much: several days 4. Feeling tired or having little energy: several days 5. Poor appetite or overeating: several days 6. Feeling bad about yourself - or that you are a failure or have let yourself or your family down: not at all 7. Trouble concentrating on things, such as reading the newspaper or watching television: not at all 8. Moving or speaking so slowly that other people could have noticed. Or the opposite - being so fidgety or restless that you have been moving around a lot more than usual: not at all 9. Thoughts that you would be better off or of hurting yourself in some way: not at all Total score: 3 Depression Screening Interpretation: Negative Depression Screening Done: Yes 84360 - PHQ-9 Billing: Yes Source: Developed by Drs. Jason Higgins, Venus Ayon, Damian Camejo and colleagues, with an educational marcell from [employer]. Thrive Questionnaire Date Thrive assessed: 08/26/24 I am a: Parent/Caregiver What is your living situation today?: I have a steady place to live Within the past 12 months, did the food you bought not last and you didn't have the money to get more?: Never true Within the past 12 months, did you worry whether your food would run out before you got money to buy more?: I choose not to answer this question Do you have trouble paying for medicines?: Yes Do you have trouble getting transportation to medical appointments?: No Do you have trouble paying your heating and electricity bill?: No Do you have trouble taking care of your child, family member or friend?: No Do you have trouble with day-to-day activities such as bathing, preparing meals, shopping, managing finances, etc.?: No Are you interested in more education?: I choose not to answer this question Please select the resources that you would like help with: Paying for medicine Currently or been in a relationship where the following occur: No concerns reported THRIVE Score: 0 AUDIT C Alcohol Use Questionnaire (AUDIT-C) 1. How often do you have a drink containing alcohol?: Monthly or less 2. How many drinks containing alcohol do you have on a typical day when you are drinking?: 1 or 2 3. How often do you have six or more drinks on one occasion?: Never Total Score: 1 JASWINDER-7 AMB Questionnaire JASWINDER-7 Date JASWINDER - 7 assessed: 08/27/24 Feeling nervous, anxious, or on edge: 0 = Not at all Not being able to stop or control worryin = Not at all Worrying too much about different things: 0 = Not at all Trouble relaxin = Not at all Being so restless that it is hard to sit still: 0 = Not at all Becoming easily annoyed or irritable: 0 = Not at all Feeling afraid as if something awful might happen: 0 = Not at all Total JASWINDER-7 score (0-4 normal; 5-9 mild; 10-14 moderate; 15-21 severe): 0 Source: Developed by Drs. Jason Higgins, Venus Ayon, Damian Camejo and colleagues, with an educational marcell from [employer]. JASWINDER-7 Assessment Billing JASWINDER-7 Assessment Tool: JASWINDER-7 Assessment 64175 Review of Systems Card Reports no additional complaints Resp Reports no additional complaints GI Reports no additional complaints Physical exam (Primary Care) Vital Signs: Last Vital Signs Pulse 86 08/27/24 10:09 BP 118/72 08/27/24 10:09 Pulse Ox 99 08/27/24 10:09 Oxygen Delivery Method Room Air 08/27/24 10:09 BMI result Body Mass Index 26.7 Tobacco/Smoking Status: Tobacco use Status Tobacco use date assessed 08/27/24 08/27/24 10:13 Patient Tobacco Use Status Never used Tobacco 08/27/24 10:13 e-Cigarette/Vaping Use Never Used 08/27/24 10:07 PHQ-9: PHQ-9 Score PHQ-9: Total score 3 08/27/24 10:13 Depression Screening Interpretation: Negative Thrive Assessment: Date of Thrive Assessment Date Thrive assessed 08/26/24 08/27/24 10:07 Currently or been in a relationship where the following occur: No concerns reported Const General: ill appearing Resp Effort & Inspection: normal respiratory effort Auscultation: clear to auscultation bilaterally Cardio Rhythm: abnormal rhythm irregularly irregular Heart sounds: S1 normal heart sound present and S2 normal heart sound present GI Inspection: Yes distended Palpation (GI): Firmness to palpation present (GI) and nontender Auscultation: normal bowel sounds Assessment and Plan Assessment & Plan (1) Pancreatic mass: Comment: CT abd 2 cm mass in the head of the pancreas, multiple hepatic lesion consistent with metastatic disease, mild upper abdominal lymphadenopathy 08/24/2024, referred for liver biopsy and Oncology by GI Code(s): K86.89 - Other specified diseases of pancreas Plan: Follow-up with GI and Oncology (2) Anemia: Code(s): D64.9 - Anemia, unspecified Plan: Iron deficiency and chronic disease, (3) HTN (hypertension): Comment: BP goal less than 130/80 Code(s): I10 - Essential (primary) hypertension Plan: Blood pressure is low patient was advised to stop hydrochlorothiazide and take only half a tablet of lisinopril. He will start monitoring his blood pressure at home (4) Hyperglycemia: Code(s): R73.9 - Hyperglycemia, unspecified Plan: Patient will be monitoring his fasting glucose Medications: New diltiazem HCl CD (Cardizem CD) 180 mg PO DAILY 90 caps 0RF blood sugar diagnostic (AGNITiOuch Ultra Test strips) 1 a day 100 ea 0RF Changed From lisinopril 20 mg PO DAILY 90 tabs 3RF To lisinopril 10 mg (1/2 x 20 mg) PO DAILY 90 tabs 3RF Refilled Advair Diskus 250-50 mcg/dose (fluticasone propion-salmeterol) 1 inh inhalation BID 180 ea 3RF NS Discontinued hydrochlorothiazide Discontinued Reason: Doctor's Order 12.5 mg PO QAM 90 tabs 3RF Coding Level of Care Code Est Pt Level 4 (98773) Diagnoses Pancreatic mass K86.89 Anemia D64.9 HTN (hypertension) I10 Hyperglycemia R73.9 Additional Codes JASWINDER-7 Assessment Billing - JASWINDER-7 Assessment Tool: JASWINDER-7 Assessment 86451 ([id number])
[2024-08-27 10:09] VITALS: BP 118/72; PULSE 86; O2SAT 99; BMI 26.7
== END 2024-08-27 11:05 | disposition home or self-care (01) ==
PROVIDERS: PCP Internal Medicine; Visit Provider Internal Medicine
DX: K86.89 Other specified diseases of pancreas (principal); D64.9 Anemia, unspecified; I10 Essential (primary) hypertension; R73.9 Hyperglycemia, unspecified

== ENCOUNTER → 2024-08-27 09:58 | Outpatient (BNVA) | payer MEDICARE, SELFPAY | PROVIDERS: PCP Internal Medicine; Visit Provider Internal Medicine | DX: K86.89 Other specified diseases of pancreas (principal); D64.9 Anemia, unspecified; I10 Essential (primary) hypertension; R73.9 Hyperglycemia, unspecified | CPT/HCPCS: 96127; 99212 ==

== ENCOUNTER → 2024-09-05 12:57 | Outpatient (BNVA) | payer MEDICARE, SELFPAY | PROVIDERS: PCP Internal Medicine; Visit Provider Internal Medicine ==